=== PATIENT | female | born 1935 | race African-American/Black ===

== ENCOUNTER 2018-03-29 13:35 | Inpatient (IN) ==
[2018-03-29 14:30] LABS: BASOPHILS % (AUTO) 0.6 % (0.2-1.0); EOSINOPHILS # (AUTO) 0.1 x10^3/uL (0.0-0.2); EOSINOPHILS % (AUTO) 1.3 % (0.9-2.9); HEMATOCRIT 37.3 % (36.0-47.0); HEMOGLOBIN 11.9 g/dL (12.0-16.0); LYMPHOCYTES # (AUTO) 1.3 X10^3/uL (1.3-2.9); LYMPHOCYTES % (AUTO) 28.4 % (21.0-51.0); MEAN CORPUSCULAR HEMOGLOBIN 23.1 pg (27.0-34.0); MEAN PLATELET VOLUME 8.1 fL (7.4-11.0); MONOCYTES # (AUTO) 0.4 x10^3/uL (0.3-0.8); MONOCYTES % (AUTO) 8.5 % (0.0-13.0); NEUTROPHILS # (AUTO) 2.9 x10^3/uL (2.2-4.8); NEUTROPHILS % (AUTO) 61.2 % (42.0-75.0); PLATELET COUNT 186 X10^3/uL (150.0-450.0); RED BLOOD COUNT 5.18 X10^6/uL (3.5-5.4); RED CELL DISTRIBUTION WIDTH 15.7 % (11.6-16.5); WHITE BLOOD COUNT 4.7 X10^3/uL (3.6-10.0)
[2018-03-29 14:39] LABS: ALBUMIN 3.3 g/dL (3.4-5.0); CALCIUM 9.7 mg/dL (8.5-10.1); CARBON DIOXIDE 26.8 mmol/L (21-32); COR CA(FOR HYPOALB) 10.3 mg/dL (8.5-10.1); CREATININE 1.16 mg/dL (0.55-1.02); TOTAL PROTEIN 7.2 g/dL (6.4-8.2)
[2018-03-29 14:40] LABS: HYPOCHROMASIA 1+; PLATELET MORPHOLOGY COMMENT NORMAL (NORMAL)
[2018-03-29] MEDS: NS 1000 ML 1,000 ML IV SCH (14:42)
[2018-03-29] MEDS ORDERED: HEPARIN SODIUM INJ 5000 UNITS ONE (14:54)
[2018-03-29] MEDS ORDERED: HEPARIN SODIUM INJ 5000 UNITS IVP ONE (14:57)
[2018-03-29] MEDS: HEPARIN SODIUM IN D5W 25,000 UNITS/500 ML BAG IV PRN (15:00)
[2018-03-29 15:42] VITALS: BMI 26.6
[2018-03-29] MEDS ORDERED: NORCO 5/325 MG TAB PO PRN (15:46)
[2018-03-29] MEDS ORDERED: MILK OF MAGNESIA ONE (15:50)
[2018-03-29] MEDS: MILK OF MAGNESIA PO PRN (15:55)
[2018-03-29 16:23] LABS: BILIRUBIN,URINE NEGATIVE (NEGATIVE); BLOOD/HEMOGLOBIN,URINE 4+ (NEGATIVE); GLUCOSE, URINE NEGATIVE (NEGATIVE); KETONES,URINE NEGATIVE (NEGATIVE); LEUKOCYTE ESTERASE ,URINE 1+ (NEGATIVE); NITRITES,URINE NEGATIVE (NEGATIVE); PH,URINE 6.5 (5.0 - 8.0); PROTEIN,URINE 2+ (NEGATIVE); UROBILINOGEN,URINE 1+ (NORMAL)
[2018-03-29 16:39] LABS: APPEARANCE,URINE CLOUDY (CLEAR); COLOR,URINE YELLOW (YELLOW)
[2018-03-29 16:40] LABS: AMORPHOUS SEDIMENT,UR TRACE /HPF (NEGATIVE); BACTERIA,URINE 3+ /HPF (NEGATIVE); SQUAMOUS EPITHELIAL CELL,UR FEW /HPF (NEGATIVE)
[2018-03-29 16:41] LABS: YEAST,URINE FEW /HPF (NEGATIVE)
[2018-03-29] MEDS: HYZAAR 50/12.5 MG PO SCH (17:16)
[2018-03-29] MEDS: XANAX PO PRN (17:16)
[2018-03-29] MEDS: COUMADIN TAB 5 MG PO SCH (20:02)
[2018-03-30] MEDS: NS 1000 ML 1,000 ML IV SCH ×3 (04:31→18:31)
[2018-03-30 05:23] LABS: BASOPHILS % (AUTO) 0.5 % (0.2-1.0); EOSINOPHILS # (AUTO) 0.1 x10^3/uL (0.0-0.2); HEMATOCRIT 32.2 % (36.0-47.0); HEMOGLOBIN 10.3 g/dL (12.0-16.0); LYMPHOCYTES # (AUTO) 1.3 X10^3/uL (1.3-2.9); LYMPHOCYTES % (AUTO) 24.3 % (21.0-51.0); MEAN CORPUSCULAR HGB CONC 32.1 g/dL (33.0-35.0); MEAN CORPUSCULAR VOLUME 71.5 fL (80.0-100.0); MEAN PLATELET VOLUME 8.8 fL (7.4-11.0); MONOCYTES # (AUTO) 0.4 x10^3/uL (0.3-0.8); MONOCYTES % (AUTO) 8.5 % (0.0-13.0); NEUTROPHILS # (AUTO) 3.4 x10^3/uL (2.2-4.8); NEUTROPHILS % (AUTO) 64.7 % (42.0-75.0); PLATELET COUNT 173 X10^3/uL (150.0-450.0); RED BLOOD COUNT 4.51 X10^6/uL (3.5-5.4); RED CELL DISTRIBUTION WIDTH 15.6 % (11.6-16.5); WHITE BLOOD COUNT 5.2 X10^3/uL (3.6-10.0)
[2018-03-30 05:38] LABS: ALANINE AMINOTRANSFERASE 16 Units/L (12-78); ALBUMIN 2.6 g/dL (3.4-5.0); ALKALINE PHOSPHATASE 81 Units/L (46-116); ASPARTATE AMINO TRANSFERASE 16 Units/L (15-37); BLOOD UREA NITROGEN 18 mg/dL (7-18); CALCIUM 8.9 mg/dL (8.5-10.1); CARBON DIOXIDE 26.7 mmol/L (21-32); CHLORIDE 111 mmol/L (98-107); CREATININE 0.98 mg/dL (0.55-1.02); SODIUM 142 mmol/L (136-145); eGFR NON BLACK RACES 57 (>60)
[2018-03-30 05:56] LABS: PLATELET MORPHOLOGY COMMENT NORMAL (NORMAL)
[2018-03-30 05:57] LABS: HYPOCHROMASIA 1+; POIKILOCYTOSIS SLIGHT; TARGET CELLS SLIGHT
[2018-03-30] MEDS: HYZAAR 50/12.5 MG PO SCH (08:32)
[2018-03-30] MEDS: MILK OF MAGNESIA PO PRN (08:32)
[2018-03-30] MEDS: CIPRO IV 200 MG PREMIX* 200 MG/100 ML BAG IV SCH ×2 (10:16→20:43)
--- NOTE | 2018-03-30 11:17 | DR.UPDATE ---
H&P Update History and Physical Update: WAS SEEN IN THE OFFICE TODAY. A H&P WAS COMPLETED PRIOR TO ADMISSION. PATIENT HAS BEEN SEEN AND EXAMINED WITH NO CHANGES NOTED TO H&P. Changes noted: NO Yes with the following:
[2018-03-30] MEDS ORDERED: IMDUR PO ONE (15:23)
[2018-03-30] MEDS: ISOSORBIDE MONONITRATE ER PO SCH (15:24)
[2018-03-30] MEDS: LOPRESSOR TAB 25 MG PO SCH (15:24)
[2018-03-30] MEDS: XANAX PO PRN (15:24)
[2018-03-30] MEDS: COUMADIN TAB 5 MG PO SCH (20:43)
[2018-03-30] MEDS: HEPARIN SODIUM IN D5W 25,000 UNITS/500 ML BAG IV PRN (23:30)
[2018-03-31] MEDS: XANAX PO PRN (05:09)
[2018-03-31] MEDS: NS 1000 ML 1,000 ML IV SCH ×2 (05:09→18:26)
[2018-03-31 05:15] LABS: BASOPHILS % (AUTO) 0.2 % (0.2-1.0); EOSINOPHILS # (AUTO) 0.2 x10^3/uL (0.0-0.2); EOSINOPHILS % (AUTO) 4.4 % (0.9-2.9); HEMATOCRIT 35.1 % (36.0-47.0); HEMOGLOBIN 11.3 g/dL (12.0-16.0); LYMPHOCYTES # (AUTO) 1.6 X10^3/uL (1.3-2.9); LYMPHOCYTES % (AUTO) 39.3 % (21.0-51.0); MEAN CORPUSCULAR HEMOGLOBIN 22.9 pg (27.0-34.0); MEAN CORPUSCULAR HGB CONC 32.1 g/dL (33.0-35.0); MEAN CORPUSCULAR VOLUME 71.2 fL (80.0-100.0); MEAN PLATELET VOLUME 8.4 fL (7.4-11.0); MONOCYTES # (AUTO) 0.4 x10^3/uL (0.3-0.8); MONOCYTES % (AUTO) 10.9 % (0.0-13.0); NEUTROPHILS # (AUTO) 1.8 x10^3/uL (2.2-4.8); NEUTROPHILS % (AUTO) 45.2 % (42.0-75.0); PLATELET COUNT 180 X10^3/uL (150.0-450.0); RED BLOOD COUNT 4.92 X10^6/uL (3.5-5.4); RED CELL DISTRIBUTION WIDTH 15.2 % (11.6-16.5)
[2018-03-31 05:25] LABS: ALANINE AMINOTRANSFERASE 18 Units/L (12-78); ALBUMIN 2.6 g/dL (3.4-5.0); ALKALINE PHOSPHATASE 70 Units/L (46-116); ASPARTATE AMINO TRANSFERASE 15 Units/L (15-37); BLOOD UREA NITROGEN 13 mg/dL (7-18); CALCIUM 9.3 mg/dL (8.5-10.1); CHLORIDE 110 mmol/L (98-107); COR CA(FOR HYPOALB) 10.4 mg/dL (8.5-10.1); CREATININE 1.08 mg/dL (0.55-1.02); SODIUM 143 mmol/L (136-145); TOTAL PROTEIN 6.2 g/dL (6.4-8.2); eGFR NON BLACK RACES 51 (>60)
[2018-03-31 05:29] LABS: HYPOCHROMASIA 1+; PLATELET MORPHOLOGY COMMENT NORMAL (NORMAL)
[2018-03-31] MEDS: CIPRO IV 200 MG PREMIX* 200 MG/100 ML BAG IV SCH (08:40)
[2018-03-31] MEDS: ISOSORBIDE MONONITRATE ER PO SCH (08:40)
[2018-03-31] MEDS: HYZAAR 50/12.5 MG PO SCH (08:41)
[2018-03-31] MEDS: LOPRESSOR TAB 25 MG PO SCH (08:41)
[2018-03-31] MEDS: ALDACTONE TAB 25 MG PO SCH (10:10)
[2018-03-31] MEDS: ULTRAM PO SCH ×3 (10:10→21:36)
[2018-03-31] MEDS: SINEMET (PLAIN) 25/250 MG PO SCH ×3 (10:11→21:35)
[2018-03-31] MEDS ORDERED: HEPARIN SODIUM INJ 5000 UNITS IVP ONE (13:33)
[2018-03-31] MEDS ORDERED: HEPARIN SODIUM INJ 5000 UNITS ONE (13:33)
[2018-03-31] MEDS: ROCEPHIN 1 GRAM IV PREMIX 1 G/50 ML IV.SOLN. IV SCH (21:33)
[2018-03-31] MEDS: COUMADIN TAB 5 MG PO SCH (21:37)
[2018-04-01] MEDS: SINEMET (PLAIN) 25/250 MG PO SCH ×3 (05:13→21:15)
[2018-04-01] MEDS: ULTRAM PO SCH ×3 (05:14→21:15)
[2018-04-01] MEDS ORDERED: ZOFRAN INJ 4 MG VIAL IVP PRN (05:40)
[2018-04-01 06:33] LABS: BASOPHILS % (AUTO) 0.5 % (0.2-1.0); EOSINOPHILS # (AUTO) 0.1 x10^3/uL (0.0-0.2); EOSINOPHILS % (AUTO) 2.2 % (0.9-2.9); HEMATOCRIT 36.7 % (36.0-47.0); HEMOGLOBIN 11.8 g/dL (12.0-16.0); MEAN CORPUSCULAR HEMOGLOBIN 23.1 pg (27.0-34.0); MEAN CORPUSCULAR HGB CONC 32.1 g/dL (33.0-35.0); MEAN CORPUSCULAR VOLUME 71.9 fL (80.0-100.0); MEAN PLATELET VOLUME 8.8 fL (7.4-11.0); MONOCYTES # (AUTO) 0.7 x10^3/uL (0.3-0.8); NEUTROPHILS # (AUTO) 2.7 x10^3/uL (2.2-4.8); NEUTROPHILS % (AUTO) 49.3 % (42.0-75.0); PLATELET COUNT 166 X10^3/uL (150.0-450.0); RED CELL DISTRIBUTION WIDTH 15.3 % (11.6-16.5); WHITE BLOOD COUNT 5.5 X10^3/uL (3.6-10.0)
[2018-04-01] MEDS: NS 1000 ML 1,000 ML IV SCH ×2 (06:48→21:42)
[2018-04-01] MEDS ORDERED: HEPARIN SODIUM INJ 5000 UNITS IVP ONE (06:51)
[2018-04-01 06:54] LABS: ALANINE AMINOTRANSFERASE 6 Units/L (12-78); ALBUMIN 2.6 g/dL (3.4-5.0); ALKALINE PHOSPHATASE 69 Units/L (46-116); ASPARTATE AMINO TRANSFERASE 21 Units/L (15-37); BLOOD UREA NITROGEN 14 mg/dL (7-18); CALCIUM 9.3 mg/dL (8.5-10.1); CARBON DIOXIDE 25.5 mmol/L (21-32); CHLORIDE 104 mmol/L (98-107); COR CA(FOR HYPOALB) 10.4 mg/dL (8.5-10.1); CREATININE 0.99 mg/dL (0.55-1.02); SODIUM 137 mmol/L (136-145); TOTAL PROTEIN 6.7 g/dL (6.4-8.2); eGFR NON BLACK RACES 57 (>60)
[2018-04-01 07:03] LABS: ANISOCYTOSIS SLIGHT; HYPOCHROMASIA 1+; PLATELET MORPHOLOGY COMMENT NORMAL (NORMAL)
[2018-04-01] MEDS ORDERED: PHENERGAN INJ 25 MG IV PRN (07:09)
[2018-04-01] MEDS: HYZAAR 50/12.5 MG PO SCH (08:58)
[2018-04-01] MEDS: ALDACTONE TAB 25 MG PO SCH (08:58)
[2018-04-01] MEDS: ROCEPHIN 1 GRAM IV PREMIX 1 G/50 ML IV.SOLN. IV SCH (08:59)
[2018-04-01] MEDS: LOPRESSOR TAB 25 MG PO SCH (08:59)
[2018-04-01] MEDS: ISOSORBIDE MONONITRATE ER PO SCH (08:59)
--- NOTE | 2018-04-01 10:52 | PCM.PROG ---
Progress Note - Progress Note for Day of Date: 03/30/18 - Subjective Subjective: WAS ADMITTED FOR A LEFT LOWER EXTREMITY DVT. TODAY, SHE IS ALERT AND ORIENTED, SITTING UP ON THE SIDE OF THE BED ON MORNING ROUNDS. SHE IS FEEDING HERSELFT BREAKFAST WITH THE ASSISTANCE OF STAFF. ON EXAMINATION, HEART IS REGULAR IN RATE AND RHYTHM. BILATERAL LUNGS ARE NOTED WITH DIMINISHED LUNG SOUNDS THROUGHOUT. ABDOMEN IS ROUND, SOFT, AND NON-TENDER WITH NORMAL BOWEL SOUNDS NOTED IN ALL QUADRANTS. LEFT LOWER EXTREMITY IS NOTED WITH WARMTH AND EDEMA. HER VITALS TODAY ARE 97.6-66-20-100%-174/80. LABS WERE OBTAINED. ABNORMAL LAB VALUES INCLUDE THE FOLLOWING: HGB 10.3, HCT 32.2, CHLORIDE 111, TOTAL PROTEIN 6.0, ALBUMIN 2.6. URINALYSIS THAT WAS OBTAINED ON ADMISSION REVEALED WBC 3-5, RBC 3-5, LEUKOCYTES 1+, BACTERIA 3+. A URINE CULTURE IS PENDING. SHE CONTINUES ON A HEPARIN DRIP THIS MORNING AND IS ALSO RECEIVING COUMADIN 5MG AT BEDTIME. WE WILL CONTINUE WITH CURRENT PLAN OF CARE TODAY AND START CIPRO 200MG IV Q12H FOR UTI. OTHERWISE, WE WILL FOLLOW UP WITH AM LABS AND CONTINUE TO MONITOR PATIENT. - Past Medical Family Social History Past Med/Fam/Surg Hx: No changes since H&P Allergies: Allergies codeine Allergy (Verified 03/29/18 14:17) penicillin G Allergy (Verified 03/29/18 14:17) - Review of Systems ROS: No change since H&P - Vital Signs and I&O's Vital Signs: Temperature 98.7 F Pulse Rate [Apical] 69 Respiratory Rate 15 Blood Pressure [Left Arm] 178/98 O2 Sat by Pulse Oximetry 100 Intake and Output: Intake & Output 03/29/18 03/30/18 03/31/18 04/01/18 11:59 11:59 11:59 11:59 Intake Total 2116 / 2116 2829 / 2829 2108 / 2108 Output Total 2249 / 2250 3075 / 3075 2049 Balance -134 / -134 -246 / -246 - Physical Exam Oriented: Normal Eyes: Normal Ear: Normal Nose: Normal Throat: Normal Respiratory: Normal Cardiovascular: Normal : Normal Auscultation: Bowel Sounds: Normal Palpation: Normal Tenderness: Normal Skin: Tender (LEFT LOWER EXTREMITY ), Hot Musculoskeletal: Left, Leg, Swelling, Tender Psychiatric: Normal Mood Description: Calm Affect: Normal Speech Pattern: Clear, Appropriate - Laboratory and Diagnostics Result Diagrams: 04/01/18 05:40 04/01/18 05:40 Labs: 03/29/18 15:22 Urine,Catheterized Urine Culture - Final Escherichia Coli Laboratory WBC 5.5 X10^3/uL (3.6-10.0) 04/01/18 05:40 RBC 5.10 X10^6/uL (3.5-5.4) 04/01/18 05:40 Hgb 11.8 g/dL (12.0-16.0) L 04/01/18 05:40 Hct 36.7 % (36.0-47.0) 04/01/18 05:40 MCV 71.9 fL (80.0-100.0) L 04/01/18 05:40 MCH 23.1 pg (27.0-34.0) L 04/01/18 05:40 MCHC 32.1 g/dL (33.0-35.0) L 04/01/18 05:40 RDW 15.3 % (11.6-16.5) 04/01/18 05:40 Plt Count 166 X10^3/uL (150.0-450.0) 04/01/18 05:40 Plt Count Comment Adequate (ADEQUATE) 04/01/18 05:40 MPV 8.8 fL (7.4-11.0) 04/01/18 05:40 Neut % (Auto) 49.3 % (42.0-75.0) 04/01/18 05:40 Lymph % (Auto) 36.0 % (21.0-51.0) 04/01/18 05:40 [place] % (Auto) 12.0 % (0.0-13.0) 04/01/18 05:40 Eos % (Auto) 2.2 % (0.9-2.9) 04/01/18 05:40 Baso % (Auto) 0.5 % (0.2-1.0) 04/01/18 05:40 Neut # (Auto) 2.7 x10^3/uL (2.2-4.8) 04/01/18 05:40 Lymph # (Auto) 2.0 X10^3/uL (1.3-2.9) 04/01/18 05:40 [place] # (Auto) 0.7 x10^3/uL (0.3-0.8) 04/01/18 05:40 Eos # (Auto) 0.1 x10^3/uL (0.0-0.2) 04/01/18 05:40 Baso # (Auto) 0.0 X10^3/uL (0.0-0.1) 04/01/18 05:40 Absolute Nucleated RBC 0.1 /100WBC 04/01/18 05:40 Plt Morphology Comment Normal (NORMAL) 04/01/18 05:40 RBC Morphology Abnormal (NORMAL) A 04/01/18 05:40 Hypochromasia 1+ A 04/01/18 05:40 Poikilocytosis Slight A 03/30/18 04:08 Anisocytosis Slight A 04/01/18 05:40 Target Cells Slight A 03/30/18 04:08 Acanthocytes (Spur) Slight 03/30/18 04:08 INR Target Range - 04/01/18 05:40 INR 2.10 (0.8-1.3) H 04/01/18 05:40 APTT 50.6 SECONDS (22.9-36.5) H 04/01/18 05:40 PTT Comment - 04/01/18 05:40 Sodium 137 mmol/L (136-145) 04/01/18 05:40 Corrected Sodium TNP 04/01/18 05:40 Potassium 4.4 mmol/L (3.5-5.1) 04/01/18 05:40 Chloride 104 mmol/L (98-107) 04/01/18 05:40 Carbon Dioxide 25.5 mmol/L (21-32) 04/01/18 05:40 BUN 14 mg/dL (7-18) 04/01/18 05:40 Creatinine 0.99 mg/dL (0.55-1.02) 04/01/18 05:40 Est GFR (MDRD) Af Amer > 60 (>60) 04/01/18 05:40 Est GFR (MDRD) Non-Af 57 (>60) L 04/01/18 05:40 Glucose 107 mg/dL (65-99) H 04/01/18 05:40 Calcium 9.3 mg/dL (8.5-10.1) 04/01/18 05:40 Corrected Calcium 10.4 mg/dL (8.5-10.1) H 04/01/18 05:40 Total Bilirubin 0.40 mg/dL (0.2-1.0) 04/01/18 05:40 AST 21 Units/L (15-37) 04/01/18 05:40 ALT 6 Units/L (12-78) L 04/01/18 05:40 Alkaline Phosphatase 69 Units/L (46-116) 04/01/18 05:40 Total Protein 6.7 g/dL (6.4-8.2) 04/01/18 05:40 Albumin 2.6 g/dL (3.4-5.0) L 04/01/18 05:40 Globulin 4.1 g/dL (2.5-4.5) 04/01/18 05:40 Albumin/Globulin Ratio 0.6 Ratio (1.1-2.1) L 04/01/18 05:40 Specimen Type Catherized urine 03/29/18 15:22 Urine Color Yellow (YELLOW) 03/29/18 15:22 Urine Appearance Cloudy (CLEAR) 03/29/18 15:22 Urine pH 6.5 (5.0 - 8.0) 03/29/18 15:22 Ur Specific [place] 1.015 (1.000-1.030) 03/29/18 15:22 Urine Protein 2+ (NEGATIVE) 03/29/18 15:22 Urine Glucose (UA) Negative (NEGATIVE) 03/29/18 15:22 Urine Ketones Negative (NEGATIVE) 03/29/18 15:22 Urine Occult Blood 4+ (NEGATIVE) 03/29/18 15:22 Urine Nitrite Negative (NEGATIVE) 03/29/18 15:22 Urine Bilirubin Negative (NEGATIVE) 03/29/18 15:22 Urine Urobilinogen 1+ (NORMAL) 03/29/18 15:22 Ur Leukocyte Esterase 1+ (NEGATIVE) 03/29/18 15:22 Urine RBC 3-5 /HPF (NONE SEEN) 03/29/18 15:22 Urine WBC 3-5 /HPF (NONE SEEN) 03/29/18 15:22 Ur Squamous Epith Cells Few /HPF (NEGATIVE) 03/29/18 15:22 Amorphous Sediment Trace /HPF (NEGATIVE) 03/29/18 15:22 Urine Bacteria 3+ /HPF (NEGATIVE) 03/29/18 15:22 Urine Yeast Few /HPF (NEGATIVE) 03/29/18 15:22 Ur Culture Indicated? Yes/culture set up 03/29/18 15:22 - Plan (1) DVT (deep venous thrombosis) Status: Acute Qualifiers: DVT location: lower extremity Affected thrombotic vein of extremity: unspecified vein of extremity Chronicity: acute Laterality: left Qualified Code(s): I82.402 - Acute embolism and thrombosis of unspecified deep veins of left lower extremity Plan: HEPARIN DRIP, COUMADIN 5MG HS, CONTINUE TO MONITOR (2) UTI (urinary tract infection) Status: Acute Qualifiers: Urinary tract infection type: acute cystitis Hematuria presence: without hematuria Qualified Code(s): N30.00 - Acute cystitis without hematuria Plan: CIPRO 200MG IV BID, CONTINUE TO MONITOR
--- NOTE | 2018-04-01 10:58 | PCM.PROG ---
Progress Note - Progress Note for Day of Date: 03/31/18 - Subjective Subjective: WAS ADMITTED FOR A LEFT LOWER EXTREMITY DVT. TODAY, SHE IS LYING IN BED WITH EYES CLOSED ON MORNING ROUNDS. SHE IS DISORIENTED UPON AWAKENING. PATIENT DOES HAVE A HISTORY SIGNIFICANT FOR DEMENTIA. ON EXAMINATION , HEART IS REGULAR IN RATE AND RHYTHM. BILATERAL LUNGS ARE NOTED WITH DIMINISHED LUNG SOUNDS THROUGHOUT. ABDOMEN IS ROUND, SOFT, AND NON-TENDER WITH NORMAL BOWEL SOUNDS NOTED IN ALL QUADRANTS. LEFT LOWER EXTREMITY CONTINUES WITH WARMTH AND EDEMA. HER VITALS TODAY ARE 97.5-63-18-99%-196/85. LABS WERE OBTAINED. ABNORMAL LAB VALUES INCLUDE THE FOLLOWING: HGB 11.3, HCT 35.1, CHLORIDE 110, CREATININE 1.08, TOTAL PROTEIN 6.2, ALBUMIN 2.6, INR 1.89. URINE CUTURE REVEALED GROWHT OF E.COLI. IT IS NOT SENSITIVE TO THE CIPRO THAT SHE IS ON. WE WILL DISCONTINUE THE CIPRO AND START ROCEPHIN 1GM IV DAILY. SHE CONTINUES ON A HEPARIN DRIP THIS MORNING AND IS ALSO RECEIVING COUMADIN 5MG AT BEDTIME. WE WILL FOLLOW UP WITH AM LABS AND CONTINUE TO MONITOR PATIENT. - Past Medical Family Social History Past Med/Fam/Surg Hx: No changes since H&P Allergies: Allergies codeine Allergy (Verified 03/29/18 14:17) penicillin G Allergy (Verified 03/29/18 14:17) - Review of Systems ROS: No change since H&P - Vital Signs and I&O's Vital Signs: Temperature 98.7 F Pulse Rate [Apical] 69 Respiratory Rate 15 Blood Pressure [Left Arm] 178/98 O2 Sat by Pulse Oximetry 100 Intake and Output: Intake & Output 03/29/18 03/30/18 03/31/18 04/01/18 11:59 11:59 11:59 11:59 Intake Total 2116 / 2116 2829 / 2829 2108 / 2108 Output Total 2250 / 2250 3075 / 3075 2049 Balance -134 / -134 -246 / -246 - Physical Exam Oriented: Normal Eyes: Normal Ear: Normal Nose: Normal Throat: Normal Respiratory: Normal Cardiovascular: Normal : Normal Auscultation: Bowel Sounds: Normal Palpation: Normal Tenderness: Normal Skin: Tender (LEFT LOWER EXTREMITY ), Hot Musculoskeletal: Left, Leg, Swelling, Tender Psychiatric: Normal Mood Description: Calm Affect: Normal Speech Pattern: Clear, Appropriate - Laboratory and Diagnostics Result Diagrams: 04/01/18 05:40 04/01/18 05:40 Labs: 03/29/18 15:22 Urine,Catheterized Urine Culture - Final Escherichia Coli Laboratory WBC 5.5 X10^3/uL (3.6-10.0) 04/01/18 05:40 RBC 5.10 X10^6/uL (3.5-5.4) 04/01/18 05:40 Hgb 11.8 g/dL (12.0-16.0) L 04/01/18 05:40 Hct 36.7 % (36.0-47.0) 04/01/18 05:40 MCV 71.9 fL (80.0-100.0) L 04/01/18 05:40 MCH 23.1 pg (27.0-34.0) L 04/01/18 05:40 MCHC 32.1 g/dL (33.0-35.0) L 04/01/18 05:40 RDW 15.3 % (11.6-16.5) 04/01/18 05:40 Plt Count 166 X10^3/uL (150.0-450.0) 04/01/18 05:40 Plt Count Comment Adequate (ADEQUATE) 04/01/18 05:40 MPV 8.8 fL (7.4-11.0) 04/01/18 05:40 Neut % (Auto) 49.3 % (42.0-75.0) 04/01/18 05:40 Lymph % (Auto) 36.0 % (21.0-51.0) 04/01/18 05:40 [place] % (Auto) 12.0 % (0.0-13.0) 04/01/18 05:40 Eos % (Auto) 2.2 % (0.9-2.9) 04/01/18 05:40 Baso % (Auto) 0.5 % (0.2-1.0) 04/01/18 05:40 Neut # (Auto) 2.7 x10^3/uL (2.2-4.8) 04/01/18 05:40 Lymph # (Auto) 2.0 X10^3/uL (1.3-2.9) 04/01/18 05:40 [place] # (Auto) 0.7 x10^3/uL (0.3-0.8) 04/01/18 05:40 Eos # (Auto) 0.1 x10^3/uL (0.0-0.2) 04/01/18 05:40 Baso # (Auto) 0.0 X10^3/uL (0.0-0.1) 04/01/18 05:40 Absolute Nucleated RBC 0.1 /100WBC 04/01/18 05:40 Plt Morphology Comment Normal (NORMAL) 04/01/18 05:40 RBC Morphology Abnormal (NORMAL) A 04/01/18 05:40 Hypochromasia 1+ A 04/01/18 05:40 Poikilocytosis Slight A 03/30/18 04:08 Anisocytosis Slight A 04/01/18 05:40 Target Cells Slight A 03/30/18 04:08 Acanthocytes (Spur) Slight 03/30/18 04:08 INR Target Range - 04/01/18 05:40 INR 2.10 (0.8-1.3) H 04/01/18 05:40 APTT 50.6 SECONDS (22.9-36.5) H 04/01/18 05:40 PTT Comment - 04/01/18 05:40 Sodium 137 mmol/L (136-145) 04/01/18 05:40 Corrected Sodium TNP 04/01/18 05:40 Potassium 4.4 mmol/L (3.5-5.1) 04/01/18 05:40 Chloride 104 mmol/L (98-107) 04/01/18 05:40 Carbon Dioxide 25.5 mmol/L (21-32) 04/01/18 05:40 BUN 14 mg/dL (7-18) 04/01/18 05:40 Creatinine 0.99 mg/dL (0.55-1.02) 04/01/18 05:40 Est GFR (MDRD) Af Amer > 60 (>60) 04/01/18 05:40 Est GFR (MDRD) Non-Af 57 (>60) L 04/01/18 05:40 Glucose 107 mg/dL (65-99) H 04/01/18 05:40 Calcium 9.3 mg/dL (8.5-10.1) 04/01/18 05:40 Corrected Calcium 10.4 mg/dL (8.5-10.1) H 04/01/18 05:40 Total Bilirubin 0.40 mg/dL (0.2-1.0) 04/01/18 05:40 AST 21 Units/L (15-37) 04/01/18 05:40 ALT 6 Units/L (12-78) L 04/01/18 05:40 Alkaline Phosphatase 69 Units/L (46-116) 04/01/18 05:40 Total Protein 6.7 g/dL (6.4-8.2) 04/01/18 05:40 Albumin 2.6 g/dL (3.4-5.0) L 04/01/18 05:40 Globulin 4.1 g/dL (2.5-4.5) 04/01/18 05:40 Albumin/Globulin Ratio 0.6 Ratio (1.1-2.1) L 04/01/18 05:40 Specimen Type Catherized urine 03/29/18 15:22 Urine Color Yellow (YELLOW) 03/29/18 15:22 Urine Appearance Cloudy (CLEAR) 03/29/18 15:22 Urine pH 6.5 (5.0 - 8.0) 03/29/18 15:22 Ur Specific [place] 1.015 (1.000-1.030) 03/29/18 15:22 Urine Protein 2+ (NEGATIVE) 03/29/18 15:22 Urine Glucose (UA) Negative (NEGATIVE) 03/29/18 15:22 Urine Ketones Negative (NEGATIVE) 03/29/18 15:22 Urine Occult Blood 4+ (NEGATIVE) 03/29/18 15:22 Urine Nitrite Negative (NEGATIVE) 03/29/18 15:22 Urine Bilirubin Negative (NEGATIVE) 03/29/18 15:22 Urine Urobilinogen 1+ (NORMAL) 03/29/18 15:22 Ur Leukocyte Esterase 1+ (NEGATIVE) 03/29/18 15:22 Urine RBC 3-5 /HPF (NONE SEEN) 03/29/18 15:22 Urine WBC 3-5 /HPF (NONE SEEN) 03/29/18 15:22 Ur Squamous Epith Cells Few /HPF (NEGATIVE) 03/29/18 15:22 Amorphous Sediment Trace /HPF (NEGATIVE) 03/29/18 15:22 Urine Bacteria 3+ /HPF (NEGATIVE) 03/29/18 15:22 Urine Yeast Few /HPF (NEGATIVE) 03/29/18 15:22 Ur Culture Indicated? Yes/culture set up 03/29/18 15:22 - Plan (1) DVT (deep venous thrombosis) Status: Acute Qualifiers: DVT location: lower extremity Affected thrombotic vein of extremity: unspecified vein of extremity Chronicity: acute Laterality: left Qualified Code(s): I82.402 - Acute embolism and thrombosis of unspecified deep veins of left lower extremity Plan: HEPARIN DRIP, COUMADIN 5MG HS, CONTINUE TO MONITOR (2) UTI (urinary tract infection) Status: Acute Qualifiers: Urinary tract infection type: acute cystitis Hematuria presence: without hematuria Qualified Code(s): N30.00 - Acute cystitis without hematuria Plan: CIPRO 200MG IV BID, CONTINUE TO MONITOR (3) Dementia Status: Acute Qualifiers: Dementia type: vascular dementia Dementia behavioral disturbance: without behavioral disturbance Qualified Code(s): F01.50 - Vascular dementia without behavioral disturbance (4) Hypertension Status: Acute Qualifiers: Hypertension type: essential hypertension Qualified Code(s): I10 - Essential (primary) hypertension Plan: RESUME HOME MEDICATIONS
--- NOTE | 2018-04-01 14:21 | CT ---
CT head without contrast Indication: Altered mental status Comparison: MRI 07/14/2016 Technique: CT images of the head were obtained without contrast. Automatic exposure control was utili Calerad. Findings: There is moderate generalized brain atrophy with control and periventricular and patchy maury p white matter hypoattenuation, most compatible with severe microangiopathy. There is no acute bleed, mass effect, or abnormal extra-axial collection. No significant skeletal abnormality. The visualized paranasal sinuses and mastoid air cells are grossly clear. Impression: No acute intracranial abnormality. Global atrophy, marked white matter microangiopathy. Reported By:
[2018-04-01] MEDS: COUMADIN TAB 5 MG PO SCH (20:40)
[2018-04-01] MEDS: HEPARIN SODIUM IN D5W 25,000 UNITS/500 ML BAG IV PRN (22:21)
[2018-04-02 03:39] LABS: BASOPHILS % (AUTO) 0.4 % (0.2-1.0); EOSINOPHILS % (AUTO) 0.5 % (0.9-2.9); HEMOGLOBIN 11.8 g/dL (12.0-16.0); LYMPHOCYTES # (AUTO) 1.2 X10^3/uL (1.3-2.9); LYMPHOCYTES % (AUTO) 18.6 % (21.0-51.0); MEAN CORPUSCULAR HEMOGLOBIN 22.9 pg (27.0-34.0); MEAN CORPUSCULAR VOLUME 71.6 fL (80.0-100.0); MEAN PLATELET VOLUME 8.7 fL (7.4-11.0); MONOCYTES # (AUTO) 0.7 x10^3/uL (0.3-0.8); NEUTROPHILS # (AUTO) 4.5 x10^3/uL (2.2-4.8); NEUTROPHILS % (AUTO) 69.5 % (42.0-75.0); PLATELET COUNT 197 X10^3/uL (150.0-450.0); RED BLOOD COUNT 5.17 X10^6/uL (3.5-5.4); RED CELL DISTRIBUTION WIDTH 15.7 % (11.6-16.5); WHITE BLOOD COUNT 6.5 X10^3/uL (3.6-10.0)
[2018-04-02 03:50] LABS: ALANINE AMINOTRANSFERASE 8 Units/L (12-78); ALBUMIN 2.7 g/dL (3.4-5.0); ALKALINE PHOSPHATASE 65 Units/L (46-116); ASPARTATE AMINO TRANSFERASE 16 Units/L (15-37); BLOOD UREA NITROGEN 17 mg/dL (7-18); CALCIUM 9.7 mg/dL (8.5-10.1); CARBON DIOXIDE 27.6 mmol/L (21-32); CHLORIDE 102 mmol/L (98-107); COR CA(FOR HYPOALB) 10.7 mg/dL (8.5-10.1); CREATININE 1.24 mg/dL (0.55-1.02); SODIUM 136 mmol/L (136-145); TOTAL PROTEIN 7.1 g/dL (6.4-8.2); eGFR NON BLACK RACES 44 (>60)
[2018-04-02 03:52] LABS: ANISOCYTOSIS SLIGHT; HYPOCHROMASIA 1+; PLATELET MORPHOLOGY COMMENT NORMAL (NORMAL)
[2018-04-02] MEDS: ULTRAM PO SCH ×3 (07:15→21:06)
[2018-04-02] MEDS: SINEMET (PLAIN) 25/250 MG PO SCH ×3 (07:15→21:06)
[2018-04-02] MEDS: ALDACTONE TAB 25 MG PO SCH (09:19)
[2018-04-02] MEDS: ROCEPHIN 1 GRAM IV PREMIX 1 G/50 ML IV.SOLN. IV SCH (09:19)
[2018-04-02] MEDS: NS 1000 ML 1,000 ML IV SCH ×2 (09:20→18:11)
[2018-04-02] MEDS: ISOSORBIDE MONONITRATE ER PO SCH (09:20)
[2018-04-02] MEDS: HYZAAR 50/12.5 MG PO SCH (09:20)
[2018-04-02] MEDS: LOPRESSOR TAB 25 MG PO SCH (09:20)
[2018-04-02] MEDS: COZAAR PO SCH (10:18)
--- NOTE | 2018-04-02 14:53 | PCM.PROG ---
Progress Note - Progress Note for Day of Date: 04/01/18 - Subjective Subjective: WAS ADMITTED FOR A LEFT LOWER EXTREMITY DVT. TODAY, SHE IS LYING IN BED WITH EYES CLOSED ON MORNING ROUNDS. SHE AWAKENS TO VERBAL STIMULI. SHE IS NOTED TO BE DISORIENTED THIS MORNING. STAFF REPORTS THAT SHE HAS BEEN NOTED WITH INCREASED CONFUSION. ON EXAMINATION, HEART IS REGULAR IN RATE AND RHYTHM. BILATERAL LUNGS ARE NOTED WITH DIMINISHED LUNG SOUNDS THROUGHOUT. ABDOMEN IS ROUND, SOFT, AND NON-TENDER WITH NORMAL BOWEL SOUNDS NOTED IN ALL QUADRANTS. LEFT LOWER EXTREMITY CONTINUES WITH WARMTH AND EDEMA, BUT CONTINUES TO IMPROVE. HER VITALS TODAY ARE 98.7-63-16-97%-194/81. LABS WERE OBTAINED. ABNORMAL LAB VALUES INCLUDE THE FOLLOWING: HGB 11.8, GLUCOSE 107, ALT 6, ALBUMIN 2.6. SHE CONTINUES ON ANTIBIOTICS FOR GROWTH OF E.COLI IN URINE. SHE ALSO CONTINUES ON A HEPARIN DRIP THIS MORNING AND IS ALSO RECEIVING COUMADIN 5MG AT BEDTIME. TODAY, WE WILL OBTAIN A BRAIN CT. OTHERWISE, WE WILL FOLLOW UP WITH AM LABS AND CONTINUE TO MONITOR PATIENT. - Past Medical Family Social History Past Med/Fam/Surg Hx: No changes since H&P Allergies: Allergies codeine Allergy (Verified 03/29/18 14:17) penicillin G Allergy (Verified 03/29/18 14:17) - Review of Systems ROS: No change since H&P - Vital Signs and I&O's Vital Signs: Temperature 98.9 F Pulse Rate [Apical] 64 Respiratory Rate 9 Blood Pressure [Left Arm] 147/70 O2 Sat by Pulse Oximetry 100 Intake and Output: Intake & Output 03/31/18 04/01/18 04/02/18 04/03/18 11:59 11:59 11:59 11:59 Intake Total 2829 / 2829 2109 / 2109 2719 / 2719 Output Total 3075 / 3075 2049 / 2049 2099 / 2099 Balance -246 / -246 59 / 59 619 / 619 - Physical Exam Oriented: Not Oriented Eyes: Normal Ear: Normal Nose: Normal Throat: Normal Respiratory: Normal Cardiovascular: Normal : Normal Auscultation: Bowel Sounds: Normal Palpation: Normal Tenderness: Normal Skin: Tender (LEFT LOWER EXTREMITY ), Hot Musculoskeletal: Left, Leg, Swelling, Tender Psychiatric: Normal Mood Description: Calm Affect: Normal Speech Pattern: Clear, Appropriate - Laboratory and Diagnostics Result Diagrams: 04/02/18 03:20 04/02/18 03:20 Labs: 03/29/18 15:22 Urine,Catheterized Urine Culture - Final Escherichia Coli Laboratory WBC 6.5 X10^3/uL (3.6-10.0) 04/02/18 03:20 RBC 5.17 X10^6/uL (3.5-5.4) 04/02/18 03:20 Hgb 11.8 g/dL (12.0-16.0) L 04/02/18 03:20 Hct 37.0 % (36.0-47.0) 04/02/18 03:20 MCV 71.6 fL (80.0-100.0) L 04/02/18 03:20 MCH 22.9 pg (27.0-34.0) L 04/02/18 03:20 MCHC 32.0 g/dL (33.0-35.0) L 04/02/18 03:20 RDW 15.7 % (11.6-16.5) 04/02/18 03:20 Plt Count 197 X10^3/uL (150.0-450.0) 04/02/18 03:20 Plt Count Comment Adequate (ADEQUATE) 04/02/18 03:20 MPV 8.7 fL (7.4-11.0) 04/02/18 03:20 Neut % (Auto) 69.5 % (42.0-75.0) 04/02/18 03:20 Lymph % (Auto) 18.6 % (21.0-51.0) L 04/02/18 03:20 [place] % (Auto) 11.0 % (0.0-13.0) 04/02/18 03:20 Eos % (Auto) 0.5 % (0.9-2.9) L 04/02/18 03:20 Baso % (Auto) 0.4 % (0.2-1.0) 04/02/18 03:20 Neut # (Auto) 4.5 x10^3/uL (2.2-4.8) 04/02/18 03:20 Lymph # (Auto) 1.2 X10^3/uL (1.3-2.9) L 04/02/18 03:20 [place] # (Auto) 0.7 x10^3/uL (0.3-0.8) 04/02/18 03:20 Eos # (Auto) 0.0 x10^3/uL (0.0-0.2) 04/02/18 03:20 Baso # (Auto) 0.0 X10^3/uL (0.0-0.1) 04/02/18 03:20 Absolute Nucleated RBC 0.0 /100WBC 04/02/18 03:20 Plt Morphology Comment Normal (NORMAL) 04/02/18 03:20 RBC Morphology Abnormal (NORMAL) A 04/02/18 03:20 Hypochromasia 1+ A 04/02/18 03:20 Poikilocytosis Slight A 03/30/18 04:08 Anisocytosis Slight A 04/02/18 03:20 Target Cells Slight A 03/30/18 04:08 Acanthocytes (Spur) Slight 03/30/18 04:08 INR Target Range - 04/02/18 03:20 INR 2.73 (0.8-1.3) H 04/02/18 03:20 APTT 87.0 SECONDS (22.9-36.5) H 04/02/18 09:10 PTT Comment - 04/02/18 09:10 Sodium 136 mmol/L (136-145) 04/02/18 03:20 Corrected Sodium TNP 04/02/18 03:20 Potassium 4.3 mmol/L (3.5-5.1) 04/02/18 03:20 Chloride 102 mmol/L (98-107) 04/02/18 03:20 Carbon Dioxide 27.6 mmol/L (21-32) 04/02/18 03:20 BUN 17 mg/dL (7-18) 04/02/18 03:20 Creatinine 1.24 mg/dL (0.55-1.02) H 04/02/18 03:20 Est GFR (MDRD) Af Amer 53 (>60) L 04/02/18 03:20 Est GFR (MDRD) Non-Af 44 (>60) L 04/02/18 03:20 Glucose 102 mg/dL (65-99) H 04/02/18 03:20 Calcium 9.7 mg/dL (8.5-10.1) 04/02/18 03:20 Corrected Calcium 10.7 mg/dL (8.5-10.1) H 04/02/18 03:20 Total Bilirubin 0.30 mg/dL (0.2-1.0) 04/02/18 03:20 AST 16 Units/L (15-37) 04/02/18 03:20 ALT 8 Units/L (12-78) L 04/02/18 03:20 Alkaline Phosphatase 65 Units/L (46-116) 04/02/18 03:20 Total Protein 7.1 g/dL (6.4-8.2) 04/02/18 03:20 Albumin 2.7 g/dL (3.4-5.0) L 04/02/18 03:20 Globulin 4.4 g/dL (2.5-4.5) 04/02/18 03:20 Albumin/Globulin Ratio 0.6 Ratio (1.1-2.1) L 04/02/18 03:20 Specimen Type Catherized urine 03/29/18 15:22 Urine Color Yellow (YELLOW) 03/29/18 15:22 Urine Appearance Cloudy (CLEAR) 03/29/18 15:22 Urine pH 6.5 (5.0 - 8.0) 03/29/18 15:22 Ur Specific [place] 1.015 (1.000-1.030) 03/29/18 15:22 Urine Protein 2+ (NEGATIVE) 03/29/18 15:22 Urine Glucose (UA) Negative (NEGATIVE) 03/29/18 15:22 Urine Ketones Negative (NEGATIVE) 03/29/18 15:22 Urine Occult Blood 4+ (NEGATIVE) 03/29/18 15:22 Urine Nitrite Negative (NEGATIVE) 03/29/18 15:22 Urine Bilirubin Negative (NEGATIVE) 03/29/18 15:22 Urine Urobilinogen 1+ (NORMAL) 03/29/18 15:22 Ur Leukocyte Esterase 1+ (NEGATIVE) 03/29/18 15:22 Urine RBC 3-5 /HPF (NONE SEEN) 03/29/18 15:22 Urine WBC 3-5 /HPF (NONE SEEN) 03/29/18 15:22 Ur Squamous Epith Cells Few /HPF (NEGATIVE) 03/29/18 15:22 Amorphous Sediment Trace /HPF (NEGATIVE) 03/29/18 15:22 Urine Bacteria 3+ /HPF (NEGATIVE) 03/29/18 15:22 Urine Yeast Few /HPF (NEGATIVE) 03/29/18 15:22 Ur Culture Indicated? Yes/culture set up 03/29/18 15:22 - Plan (1) DVT (deep venous thrombosis) Status: Acute Qualifiers: DVT location: lower extremity Affected thrombotic vein of extremity: unspecified vein of extremity Chronicity: acute Laterality: left Qualified Code(s): I82.402 - Acute embolism and thrombosis of unspecified deep veins of left lower extremity Plan: HEPARIN DRIP, COUMADIN 5MG HS, CONTINUE TO MONITOR (2) UTI (urinary tract infection) Status: Acute Qualifiers: Urinary tract infection type: acute cystitis Hematuria presence: without hematuria Qualified Code(s): N30.00 - Acute cystitis without hematuria Plan: CIPRO 200MG IV BID, CONTINUE TO MONITOR (3) Dementia Status: Acute Qualifiers: Dementia type: vascular dementia Dementia behavioral disturbance: without behavioral disturbance Qualified Code(s): F01.50 - Vascular dementia without behavioral disturbance Plan: OBTAIN BRAIN CT TODAY DUE TO INCREASED CONFUSION AND WEAKNESS (4) Hypertension Status: Acute Qualifiers: Hypertension type: essential hypertension Qualified Code(s): I10 - Essential (primary) hypertension Plan: RESUME HOME MEDICATIONS
[2018-04-02] MEDS: COUMADIN TAB 5 MG PO SCH (20:09)
[2018-04-03] MEDS: NS 1000 ML 1,000 ML IV SCH ×2 (00:45→13:17)
[2018-04-03 04:28] LABS: BASOPHILS % (AUTO) 0.6 % (0.2-1.0); EOSINOPHILS # (AUTO) 0.1 x10^3/uL (0.0-0.2); EOSINOPHILS % (AUTO) 0.9 % (0.9-2.9); HEMATOCRIT 37.7 % (36.0-47.0); HEMOGLOBIN 12.1 g/dL (12.0-16.0); LYMPHOCYTES % (AUTO) 16.8 % (21.0-51.0); MEAN CORPUSCULAR HEMOGLOBIN 22.8 pg (27.0-34.0); MEAN CORPUSCULAR VOLUME 71.1 fL (80.0-100.0); MEAN PLATELET VOLUME 8.7 fL (7.4-11.0); MONOCYTES # (AUTO) 0.8 x10^3/uL (0.3-0.8); MONOCYTES % (AUTO) 13.5 % (0.0-13.0); NEUTROPHILS # (AUTO) 4.1 x10^3/uL (2.2-4.8); NEUTROPHILS % (AUTO) 68.2 % (42.0-75.0); PLATELET COUNT 193 X10^3/uL (150.0-450.0); RED CELL DISTRIBUTION WIDTH 15.1 % (11.6-16.5)
[2018-04-03 04:38] LABS: ANISOCYTOSIS SLIGHT; HYPOCHROMASIA 1+; PLATELET MORPHOLOGY COMMENT NORMAL (NORMAL)
[2018-04-03 04:41] LABS: ALANINE AMINOTRANSFERASE 10 Units/L (12-78); ALBUMIN 2.5 g/dL (3.4-5.0); ALKALINE PHOSPHATASE 59 Units/L (46-116); ASPARTATE AMINO TRANSFERASE 18 Units/L (15-37); BLOOD UREA NITROGEN 17 mg/dL (7-18); CALCIUM 9.8 mg/dL (8.5-10.1); CARBON DIOXIDE 27.1 mmol/L (21-32); CHLORIDE 101 mmol/L (98-107); SODIUM 135 mmol/L (136-145); TOTAL PROTEIN 6.9 g/dL (6.4-8.2); eGFR NON BLACK RACES 56 (>60)
[2018-04-03] MEDS: SINEMET (PLAIN) 25/250 MG PO SCH ×3 (05:31→21:32)
[2018-04-03] MEDS: ULTRAM PO SCH ×3 (05:32→21:31)
[2018-04-03] MEDS: ROCEPHIN 1 GRAM IV PREMIX 1 G/50 ML IV.SOLN. IV SCH (08:22)
[2018-04-03] MEDS: ALDACTONE TAB 25 MG PO SCH (08:23)
[2018-04-03] MEDS: ISOSORBIDE MONONITRATE ER PO SCH (08:23)
[2018-04-03] MEDS: LOPRESSOR TAB 25 MG PO SCH (08:23)
[2018-04-03] MEDS: COZAAR PO SCH (08:23)
--- NOTE | 2018-04-03 11:29 | VAS ---
History: Left leg pain Study: Doppler ultrasound of the deep veins of the left lower extremity Comparison: October 30, 2016 Findings: The deep veins from the left common femoral vein to the popliteal vein are widely patent wi th good color Doppler blood flow compression and augmentation. Impression: Negative, no evidence for deep venous thrombosis Reported By:
[2018-04-03] MEDS: NORMODYNE INJ 20 MG VIAL IVP PRN ×2 (13:40→16:14)
[2018-04-03] MEDS: MEGACE ORAL SUSP 400 MG/10 ML PO SCH (15:52)
--- NOTE | 2018-04-03 21:43 | PCM.PROG ---
Progress Note - Progress Note for Day of Date of Exam: 04/02/18 - Subjective Subjective: WAS ADMITTED FOR A LEFT LOWER EXTREMITY DVT. TODAY, SHE IS ALERT, LYING IN BED ON MORNING ROUNDS. STAFF REPORTS THAT SHE CONTINUES WITH CONFUSION AT TIMES. SHE IS REFUSING TO EAT. ON EXAMINATION, HEART IS REGULAR IN RATE AND RHYTHM. BILATERAL LUNGS CONTINUE WITH DIMINISHED LUNG SOUNDS THROUGHOUT. ABDOMEN IS ROUND, SOFT, AND NON-TENDER WITH NORMAL BOWEL SOUNDS NOTED IN ALL QUADRANTS. LEFT LOWER EXTREMITY CONTINUES WITH WARMTH, NO EDEMA NOTED. HER VITALS TODAY ARE 98.7-71-12-99%-197/80. HER BLOOD PRESSURE HAS BEEN ELEVATED THROUGHOUT THE NIGHT. LABS WERE OBTAINED. ABNORMAL LAB VALUES INCLUDE THE FOLLOWING: HGB 11.8, CREATININE 1.24, GLUCOSE 102, ALT 8, ALBUMIN 2.7. SHE CONTINUES ON ANTIBIOTICS FOR GROWTH OF E.COLI IN URINE. SHE ALSO CONTINUES ON A HEPARIN DRIP THIS MORNING AND IS ALSO RECEIVING COUMADIN 5MG AT BEDTIME. TODAY, WE WILL DISCONTINUE HCTZ AND INCREASE LOSARTAN TO 100MG PO DAILY. OTHERWISE, WE WILL FOLLOW UP WITH AM LABS AND CONTINUE TO MONITOR PATIENT. - Past Medical Family Social History Past Med/Fam/Surg Hx: No changes since H&P Allergies: Allergies codeine Allergy (Verified 03/29/18 14:17) penicillin G Allergy (Verified 03/29/18 14:17) - Review of Systems ROS: No change since H&P - Vital Signs and I&O's Vital Signs: Temperature 99.6 F Pulse Rate [Apical] 81 Respiratory Rate 13 Blood Pressure [Left Arm] 149/69 O2 Sat by Pulse Oximetry 97 Intake and Output: Intake & Output 04/01/18 04/02/18 04/03/18 04/04/18 11:59 11:59 11:59 11:59 Intake Total 210 / 2109 2719 / 2719 2544 / 2544 690 / 690 Output Total 2049 / 2049 2099 / 2099 2150 / 2150 500 / 500 Balance 59 / 59 619 / 619 394 / 394 190 / 190 - Physical Exam Oriented: Person, Place Eyes: Normal Ear: Normal Nose: Normal Throat: Normal Respiratory: Normal Cardiovascular: Normal : Normal Auscultation: Bowel Sounds: Normal Palpation: Normal Tenderness: Normal Skin: Tender (LEFT LOWER EXTREMITY ), Hot Musculoskeletal: Left, Leg, Swelling, Tender Psychiatric: Normal Mood Description: Calm Affect: Normal Speech Pattern: Clear, Appropriate - Laboratory and Diagnostics Result Diagrams: 04/03/18 04:05 04/03/18 04:05 Labs: 03/29/18 15:22 Urine,Catheterized Urine Culture - Final Escherichia Coli Laboratory WBC 6.0 X10^3/uL (3.6-10.0) 04/03/18 04:05 RBC 5.30 X10^6/uL (3.5-5.4) 04/03/18 04:05 Hgb 12.1 g/dL (12.0-16.0) 04/03/18 04:05 Hct 37.7 % (36.0-47.0) 04/03/18 04:05 MCV 71.1 fL (80.0-100.0) L 04/03/18 04:05 MCH 22.8 pg (27.0-34.0) L 04/03/18 04:05 MCHC 32.0 g/dL (33.0-35.0) L 04/03/18 04:05 RDW 15.1 % (11.6-16.5) 04/03/18 04:05 Plt Count 193 X10^3/uL (150.0-450.0) 04/03/18 04:05 Plt Count Comment Adequate (ADEQUATE) 04/03/18 04:05 MPV 8.7 fL (7.4-11.0) 04/03/18 04:05 Neut % (Auto) 68.2 % (42.0-75.0) 04/03/18 04:05 Lymph % (Auto) 16.8 % (21.0-51.0) L 04/03/18 04:05 [place] % (Auto) 13.5 % (0.0-13.0) H 04/03/18 04:05 Eos % (Auto) 0.9 % (0.9-2.9) 04/03/18 04:05 Baso % (Auto) 0.6 % (0.2-1.0) 04/03/18 04:05 Neut # (Auto) 4.1 x10^3/uL (2.2-4.8) 04/03/18 04:05 Lymph # (Auto) 1.0 X10^3/uL (1.3-2.9) L 04/03/18 04:05 [place] # (Auto) 0.8 x10^3/uL (0.3-0.8) 04/03/18 04:05 Eos # (Auto) 0.1 x10^3/uL (0.0-0.2) 04/03/18 04:05 Baso # (Auto) 0.0 X10^3/uL (0.0-0.1) 04/03/18 04:05 Absolute Nucleated RBC 0.0 /100WBC 04/03/18 04:05 Plt Morphology Comment Normal (NORMAL) 04/03/18 04:05 RBC Morphology Abnormal (NORMAL) A 04/03/18 04:05 Hypochromasia 1+ A 04/03/18 04:05 Poikilocytosis Slight A 03/30/18 04:08 Anisocytosis Slight A 04/03/18 04:05 Target Cells Slight A 03/30/18 04:08 Acanthocytes (Spur) Slight 03/30/18 04:08 INR Target Range - 04/03/18 04:05 INR 3.46 (0.8-1.3) H 04/03/18 04:05 APTT 90.7 SECONDS (22.9-36.5) H 04/03/18 09:52 PTT Comment - 04/03/18 09:52 Sodium 135 mmol/L (136-145) L 04/03/18 04:05 Corrected Sodium TNP 04/03/18 04:05 Potassium 4.2 mmol/L (3.5-5.1) 04/03/18 04:05 Chloride 101 mmol/L (98-107) 04/03/18 04:05 Carbon Dioxide 27.1 mmol/L (21-32) 04/03/18 04:05 BUN 17 mg/dL (7-18) 04/03/18 04:05 Creatinine 1.00 mg/dL (0.55-1.02) 04/03/18 04:05 Est GFR (MDRD) Af Amer > 60 (>60) 04/03/18 04:05 Est GFR (MDRD) Non-Af 56 (>60) L 04/03/18 04:05 Glucose 95 mg/dL (65-99) 04/03/18 04:05 Calcium 9.8 mg/dL (8.5-10.1) 04/03/18 04:05 Corrected Calcium 11.0 mg/dL (8.5-10.1) H 04/03/18 04:05 Total Bilirubin 0.40 mg/dL (0.2-1.0) 04/03/18 04:05 AST 18 Units/L (15-37) 04/03/18 04:05 ALT 10 Units/L (12-78) L 04/03/18 04:05 Alkaline Phosphatase 59 Units/L (46-116) 04/03/18 04:05 Total Protein 6.9 g/dL (6.4-8.2) 04/03/18 04:05 Albumin 2.5 g/dL (3.4-5.0) L 04/03/18 04:05 Globulin 4.4 g/dL (2.5-4.5) 04/03/18 04:05 Albumin/Globulin Ratio 0.6 Ratio (1.1-2.1) L 04/03/18 04:05 Specimen Type Catherized urine 03/29/18 15:22 Urine Color Yellow (YELLOW) 03/29/18 15:22 Urine Appearance Cloudy (CLEAR) 03/29/18 15:22 Urine pH 6.5 (5.0 - 8.0) 03/29/18 15:22 Ur Specific [place] 1.015 (1.000-1.030) 03/29/18 15:22 Urine Protein 2+ (NEGATIVE) 03/29/18 15:22 Urine Glucose (UA) Negative (NEGATIVE) 03/29/18 15:22 Urine Ketones Negative (NEGATIVE) 03/29/18 15:22 Urine Occult Blood 4+ (NEGATIVE) 03/29/18 15:22 Urine Nitrite Negative (NEGATIVE) 03/29/18 15:22 Urine Bilirubin Negative (NEGATIVE) 03/29/18 15:22 Urine Urobilinogen 1+ (NORMAL) 03/29/18 15:22 Ur Leukocyte Esterase 1+ (NEGATIVE) 03/29/18 15:22 Urine RBC 3-5 /HPF (NONE SEEN) 03/29/18 15:22 Urine WBC 3-5 /HPF (NONE SEEN) 03/29/18 15:22 Ur Squamous Epith Cells Few /HPF (NEGATIVE) 03/29/18 15:22 Amorphous Sediment Trace /HPF (NEGATIVE) 03/29/18 15:22 Urine Bacteria 3+ /HPF (NEGATIVE) 03/29/18 15:22 Urine Yeast Few /HPF (NEGATIVE) 03/29/18 15:22 Ur Culture Indicated? Yes/culture set up 03/29/18 15:22 - Plan (1) DVT (deep venous thrombosis) Status: Acute Qualifiers: DVT location: lower extremity Affected thrombotic vein of extremity: unspecified vein of extremity Chronicity: acute Laterality: left Qualified Code(s): I82.402 - Acute embolism and thrombosis of unspecified deep veins of left lower extremity Plan: HEPARIN DRIP, COUMADIN 5MG HS, CONTINUE TO MONITOR (2) UTI (urinary tract infection) Status: Acute Qualifiers: Urinary tract infection type: acute cystitis Hematuria presence: without hematuria Qualified Code(s): N30.00 - Acute cystitis without hematuria Plan: CIPRO 200MG IV BID, CONTINUE TO MONITOR (3) Dementia Status: Acute Qualifiers: Dementia type: vascular dementia Dementia behavioral disturbance: without behavioral disturbance Qualified Code(s): F01.50 - Vascular dementia without behavioral disturbance (4) Hypertension Status: Acute Qualifiers: Hypertension type: essential hypertension Qualified Code(s): I10 - Essential (primary) hypertension Plan: RESUME HOME MEDICATIONS
[2018-04-04 05:20] LABS: BASOPHILS % (AUTO) 0.5 % (0.2-1.0); EOSINOPHILS % (AUTO) 0.1 % (0.9-2.9); HEMATOCRIT 35.8 % (36.0-47.0); HEMOGLOBIN 11.8 g/dL (12.0-16.0); LYMPHOCYTES # (AUTO) 1.2 X10^3/uL (1.3-2.9); LYMPHOCYTES % (AUTO) 12.1 % (21.0-51.0); MEAN CORPUSCULAR HEMOGLOBIN 23.4 pg (27.0-34.0); MEAN CORPUSCULAR HGB CONC 32.9 g/dL (33.0-35.0); MEAN PLATELET VOLUME 8.8 fL (7.4-11.0); MONOCYTES # (AUTO) 1.3 x10^3/uL (0.3-0.8); MONOCYTES % (AUTO) 13.9 % (0.0-13.0); NEUTROPHILS % (AUTO) 73.4 % (42.0-75.0); PLATELET COUNT 208 X10^3/uL (150.0-450.0); RED BLOOD COUNT 5.04 X10^6/uL (3.5-5.4); RED CELL DISTRIBUTION WIDTH 14.9 % (11.6-16.5); WHITE BLOOD COUNT 9.6 X10^3/uL (3.6-10.0)
[2018-04-04 05:41] LABS: ALANINE AMINOTRANSFERASE 9 Units/L (12-78); ALBUMIN 2.3 g/dL (3.4-5.0); ALKALINE PHOSPHATASE 53 Units/L (46-116); ASPARTATE AMINO TRANSFERASE 19 Units/L (15-37); BLOOD UREA NITROGEN 17 mg/dL (7-18); CALCIUM 9.8 mg/dL (8.5-10.1); CARBON DIOXIDE 28.2 mmol/L (21-32); CHLORIDE 101 mmol/L (98-107); COR CA(FOR HYPOALB) 11.2 mg/dL (8.5-10.1); CREATININE 0.92 mg/dL (0.55-1.02); SODIUM 134 mmol/L (136-145); TOTAL PROTEIN 6.9 g/dL (6.4-8.2); eGFR NON BLACK RACES > 60 (>60)
[2018-04-04] MEDS: SINEMET (PLAIN) 25/250 MG PO SCH ×3 (05:51→21:02)
[2018-04-04] MEDS: ULTRAM PO SCH ×3 (05:52→21:02)
[2018-04-04] MEDS: MEGACE ORAL SUSP 400 MG/10 ML PO SCH ×2 (05:53→16:43)
[2018-04-04 06:01] LABS: ANISOCYTOSIS SLIGHT; HYPOCHROMASIA 1+; PLATELET MORPHOLOGY COMMENT NORMAL (NORMAL)
--- NOTE | 2018-04-04 08:15 | PCM.PROG ---
Progress Note - Progress Note for Day of Date of Exam: 04/03/18 - Subjective Subjective: WAS ADMITTED FOR A LEFT LOWER EXTREMITY DVT. TODAY, SHE IS ALERT, LYING IN BED ON MORNING ROUNDS. FAMILY AT BEDSIDE. THEY REPORT THAT THEY ARE UNABLE TO GET HER TO EAT. ON EXAMINATION, HEART IS REGULAR IN RATE AND RHYTHM. BILATERAL LUNGS CONTINUE WITH DIMINISHED LUNG SOUNDS THROUGHOUT. ABDOMEN IS ROUND, SOFT, AND NON-TENDER WITH NORMAL BOWEL SOUNDS NOTED IN ALL QUADRANTS. LEFT LOWER EXTREMITY HAS RETURNED TO BASELINE. HER VITALS TODAY ARE 98.5-74-12-99%-163/71. LABS WERE OBTAINED. ABNORMAL LAB VALUES INCLUDE THE FOLLOWING: SODIUM 135, ALT 10, ALBUMIN 2.5. INR IS 3.46 TODAY. SHE CONTINUES ON ANTIBIOTICS FOR GROWTH OF E.COLI IN URINE. SHE ALSO CONTINUES ON A HEPARIN DRIP THIS MORNING AND IS ALSO RECEIVING COUMADIN 5MG AT BEDTIME. TODAY, WE WILL DISCONTINUE HEPARIN AND HOLD COUMADIN TONIGHT. WE WILL REPEAT A LEFT LOWER EXTREMITY VENOUS DOPPLER AND START [place] 40MG PO BID. OTHERWISE, WE WILL FOLLOW UP WITH AM LABS AND CONTINUE TO MONITOR PATIENT. - Past Medical Family Social History Past Med/Fam/Surg Hx: No changes since H&P Allergies: Allergies codeine Allergy (Verified 03/29/18 14:17) penicillin G Allergy (Verified 03/29/18 14:17) - Review of Systems ROS: No change since H&P - Vital Signs and I&O's Vital Signs: Temperature 100.2 F Pulse Rate [Apical] 83 Respiratory Rate 15 Blood Pressure [Left Arm] 170/83 O2 Sat by Pulse Oximetry 99 Intake and Output: Intake & Output 04/01/18 04/02/18 04/03/18 04/04/18 11:59 11:59 11:59 11:59 Intake Total 2108 / 2108 2719 / 2719 2544 / 2544 2035 Output Total 2049 Balance 59 / 59 619 / 619 394 / 394 -64 / -64 - Physical Exam Oriented: Person, Place Eyes: Normal Ear: Normal Nose: Normal Throat: Normal Respiratory: Normal Cardiovascular: Normal : Normal Auscultation: Bowel Sounds: Normal Palpation: Normal Tenderness: Normal Skin: Normal Musculoskeletal: Normal Psychiatric: Normal Mood Description: Calm Affect: Normal Speech Pattern: Clear, Appropriate - Laboratory and Diagnostics Result Diagrams: 04/04/18 04:25 04/04/18 04:25 Labs: 03/29/18 15:22 Urine,Catheterized Urine Culture - Final Escherichia Coli Laboratory WBC 9.6 X10^3/uL (3.6-10.0) 04/04/18 04:25 RBC 5.04 X10^6/uL (3.5-5.4) 04/04/18 04:25 Hgb 11.8 g/dL (12.0-16.0) L 04/04/18 04:25 Hct 35.8 % (36.0-47.0) L 04/04/18 04:25 MCV 71.0 fL (80.0-100.0) L 04/04/18 04:25 MCH 23.4 pg (27.0-34.0) L 04/04/18 04:25 MCHC 32.9 g/dL (33.0-35.0) L 04/04/18 04:25 RDW 14.9 % (11.6-16.5) 04/04/18 04:25 Plt Count 208 X10^3/uL (150.0-450.0) 04/04/18 04:25 Plt Count Comment Adequate (ADEQUATE) 04/04/18 04:25 MPV 8.8 fL (7.4-11.0) 04/04/18 04:25 Neut % (Auto) 73.4 % (42.0-75.0) 04/04/18 04:25 Lymph % (Auto) 12.1 % (21.0-51.0) L 04/04/18 04:25 [place] % (Auto) 13.9 % (0.0-13.0) H 04/04/18 04:25 Eos % (Auto) 0.1 % (0.9-2.9) L 04/04/18 04:25 Baso % (Auto) 0.5 % (0.2-1.0) 04/04/18 04:25 Neut # (Auto) 7.0 x10^3/uL (2.2-4.8) H 04/04/18 04:25 Lymph # (Auto) 1.2 X10^3/uL (1.3-2.9) L 04/04/18 04:25 [place] # (Auto) 1.3 x10^3/uL (0.3-0.8) H 04/04/18 04:25 Eos # (Auto) 0.0 x10^3/uL (0.0-0.2) 04/04/18 04:25 Baso # (Auto) 0.0 X10^3/uL (0.0-0.1) 04/04/18 04:25 Absolute Nucleated RBC 0.0 /100WBC 04/04/18 04:25 Plt Morphology Comment Normal (NORMAL) 04/04/18 04:25 RBC Morphology Abnormal (NORMAL) A 04/04/18 04:25 Hypochromasia 1+ A 04/04/18 04:25 Poikilocytosis Slight A 03/30/18 04:08 Anisocytosis Slight A 04/04/18 04:25 Target Cells Slight A 03/30/18 04:08 Acanthocytes (Spur) Slight 03/30/18 04:08 INR Target Range - 04/03/18 04:05 INR 3.46 (0.8-1.3) H 04/03/18 04:05 APTT 90.7 SECONDS (22.9-36.5) H 04/03/18 09:52 PTT Comment - 04/03/18 09:52 Sodium 134 mmol/L (136-145) L 04/04/18 04:25 Corrected Sodium TNP 04/04/18 04:25 Potassium 4.2 mmol/L (3.5-5.1) 04/04/18 04:25 Chloride 101 mmol/L (98-107) 04/04/18 04:25 Carbon Dioxide 28.2 mmol/L (21-32) 04/04/18 04:25 BUN 17 mg/dL (7-18) 04/04/18 04:25 Creatinine 0.92 mg/dL (0.55-1.02) 04/04/18 04:25 Est GFR (MDRD) Af Amer > 60 (>60) 04/04/18 04:25 Est GFR (MDRD) Non-Af > 60 (>60) 04/04/18 04:25 Glucose 96 mg/dL (65-99) 04/04/18 04:25 Calcium 9.8 mg/dL (8.5-10.1) 04/04/18 04:25 Corrected Calcium 11.2 mg/dL (8.5-10.1) H 04/04/18 04:25 Total Bilirubin 0.50 mg/dL (0.2-1.0) 04/04/18 04:25 AST 19 Units/L (15-37) 04/04/18 04:25 ALT 9 Units/L (12-78) L 04/04/18 04:25 Alkaline Phosphatase 53 Units/L (46-116) 04/04/18 04:25 Total Protein 6.9 g/dL (6.4-8.2) 04/04/18 04:25 Albumin 2.3 g/dL (3.4-5.0) L 04/04/18 04:25 Globulin 4.6 g/dL (2.5-4.5) H 04/04/18 04:25 Albumin/Globulin Ratio 0.5 Ratio (1.1-2.1) L 04/04/18 04:25 Specimen Type Catherized urine 03/29/18 15:22 Urine Color Yellow (YELLOW) 03/29/18 15:22 Urine Appearance Cloudy (CLEAR) 03/29/18 15:22 Urine pH 6.5 (5.0 - 8.0) 03/29/18 15:22 Ur Specific [place] 1.015 (1.000-1.030) 03/29/18 15:22 Urine Protein 2+ (NEGATIVE) 03/29/18 15:22 Urine Glucose (UA) Negative (NEGATIVE) 03/29/18 15:22 Urine Ketones Negative (NEGATIVE) 03/29/18 15:22 Urine Occult Blood 4+ (NEGATIVE) 03/29/18 15:22 Urine Nitrite Negative (NEGATIVE) 03/29/18 15:22 Urine Bilirubin Negative (NEGATIVE) 03/29/18 15:22 Urine Urobilinogen 1+ (NORMAL) 03/29/18 15:22 Ur Leukocyte Esterase 1+ (NEGATIVE) 03/29/18 15:22 Urine RBC 3-5 /HPF (NONE SEEN) 03/29/18 15:22 Urine WBC 3-5 /HPF (NONE SEEN) 03/29/18 15:22 Ur Squamous Epith Cells Few /HPF (NEGATIVE) 03/29/18 15:22 Amorphous Sediment Trace /HPF (NEGATIVE) 03/29/18 15:22 Urine Bacteria 3+ /HPF (NEGATIVE) 03/29/18 15:22 Urine Yeast Few /HPF (NEGATIVE) 03/29/18 15:22 Ur Culture Indicated? Yes/culture set up 03/29/18 15:22 - Plan (1) DVT (deep venous thrombosis) Status: Acute Qualifiers: DVT location: lower extremity Affected thrombotic vein of extremity: unspecified vein of extremity Chronicity: acute Laterality: left Qualified Code(s): I82.402 - Acute embolism and thrombosis of unspecified deep veins of left lower extremity Plan: REPEAT VENOUS DOPPLER, DISCONTINUE HEPARIN DRIP, HOLD COUMADIN DUE TO ELEVATED INR, CONTINUE TO MONITOR (2) UTI (urinary tract infection) Status: Acute Qualifiers: Urinary tract infection type: acute cystitis Hematuria presence: without hematuria Qualified Code(s): N30.00 - Acute cystitis without hematuria Plan: CIPRO 200MG IV BID, CONTINUE TO MONITOR (3) Dementia Status: Acute Qualifiers: Dementia type: vascular dementia Dementia behavioral disturbance: without behavioral disturbance Qualified Code(s): F01.50 - Vascular dementia without behavioral disturbance Plan: OBTAIN BRAIN CT TODAY DUE TO INCREASED CONFUSION AND WEAKNESS (4) Hypertension Status: Acute Qualifiers: Hypertension type: essential hypertension Qualified Code(s): I10 - Essential (primary) hypertension Plan: RESUME HOME MEDICATIONS
[2018-04-04] MEDS: COZAAR PO SCH (08:18)
[2018-04-04] MEDS: ISOSORBIDE MONONITRATE ER PO SCH (08:18)
[2018-04-04] MEDS: ALDACTONE TAB 25 MG PO SCH (08:18)
[2018-04-04] MEDS: ROCEPHIN 1 GRAM IV PREMIX 1 G/50 ML IV.SOLN. IV SCH (08:18)
[2018-04-04] MEDS: LOPRESSOR TAB 25 MG PO SCH (08:19)
[2018-04-04] MEDS: NS 1000 ML 1,000 ML IV SCH ×2 (08:21→22:36)
[2018-04-04] MEDS: XANAX PO PRN ×2 (09:14→21:01)
[2018-04-04] MEDS ORDERED: HALDOL INJ IVP ONE (09:21)
[2018-04-04] MEDS ORDERED: HALDOL INJ ONE (09:22)
--- NOTE | 2018-04-04 13:49 | VAS ---
HISTORY: Right leg pain, history of DVT Study: Right lower extremity venous Doppler Comparison: October 30, 2016 and April 03, 2018 TECHNIQUE: Multiple herr scale as well as spectral and color flow Doppler images of the deep venous system were obtained of the right lower extremity. FINDINGS: The deep venous system of the right lower extremity was evaluated from the level of the common femora l vein through the popliteal vein. Normal color flow and augmentation can be observed. In addition, normal compression is seen throughout the deep venous system. IMPRESSION: Negative for DVT. Reported By:
[2018-04-04] MEDS: COUMADIN TAB 5 MG PO SCH (20:58)
[2018-04-05] MEDS: NS 1000 ML 1,000 ML IV SCH ×2 (02:33→21:07)
[2018-04-05 05:27] LABS: BASOPHILS % (AUTO) 0.3 % (0.2-1.0); EOSINOPHILS % (AUTO) 0.4 % (0.9-2.9); HEMATOCRIT 32.7 % (36.0-47.0); HEMOGLOBIN 10.7 g/dL (12.0-16.0); LYMPHOCYTES # (AUTO) 1.3 X10^3/uL (1.3-2.9); LYMPHOCYTES % (AUTO) 16.2 % (21.0-51.0); MEAN CORPUSCULAR HEMOGLOBIN 23.1 pg (27.0-34.0); MEAN CORPUSCULAR HGB CONC 32.7 g/dL (33.0-35.0); MEAN CORPUSCULAR VOLUME 70.5 fL (80.0-100.0); MEAN PLATELET VOLUME 8.8 fL (7.4-11.0); MONOCYTES % (AUTO) 12.8 % (0.0-13.0); NEUTROPHILS # (AUTO) 5.7 x10^3/uL (2.2-4.8); NEUTROPHILS % (AUTO) 70.3 % (42.0-75.0); PLATELET COUNT 210 X10^3/uL (150.0-450.0); RED BLOOD COUNT 4.63 X10^6/uL (3.5-5.4); RED CELL DISTRIBUTION WIDTH 14.6 % (11.6-16.5); WHITE BLOOD COUNT 8.1 X10^3/uL (3.6-10.0)
[2018-04-05 05:39] LABS: ALANINE AMINOTRANSFERASE 9 Units/L (12-78); ALKALINE PHOSPHATASE 47 Units/L (46-116); ASPARTATE AMINO TRANSFERASE 31 Units/L (15-37); BLOOD UREA NITROGEN 22 mg/dL (7-18); CALCIUM 9.8 mg/dL (8.5-10.1); CARBON DIOXIDE 28.2 mmol/L (21-32); CHLORIDE 103 mmol/L (98-107); COR CA(FOR HYPOALB) 11.4 mg/dL (8.5-10.1); CREATININE 1.07 mg/dL (0.55-1.02); SODIUM 137 mmol/L (136-145); TOTAL PROTEIN 6.2 g/dL (6.4-8.2); eGFR NON BLACK RACES 52 (>60)
[2018-04-05] MEDS: SINEMET (PLAIN) 25/250 MG PO SCH ×4 (05:43→21:08)
[2018-04-05] MEDS: ULTRAM PO SCH ×3 (05:44→21:07)
[2018-04-05] MEDS: MEGACE ORAL SUSP 400 MG/10 ML PO SCH ×2 (05:44→17:09)
[2018-04-05 06:13] LABS: HYPOCHROMASIA 1+; PLATELET MORPHOLOGY COMMENT NORMAL (NORMAL); POIKILOCYTOSIS SLIGHT
[2018-04-05 06:14] LABS: CRENATED RBC SLIGHT; OVALOCYTES SLIGHT
--- NOTE | 2018-04-05 08:19 | PCM.PROG ---
Progress Note - Progress Note for Day of Date of Exam: 04/04/18 - Subjective Subjective: WAS ADMITTED FOR A LEFT LOWER EXTREMITY DVT. TODAY, SHE IS ALERT, LYING IN BED ON MORNING ROUNDS. PATIENT IS CONFUSED AND APPEARS TO BE ANXIOUS THIS MORNING. ON EXAMINATION, HEART IS REGULAR IN RATE AND RHYTHM. BILATERAL LUNGS CONTINUE WITH DIMINISHED LUNG SOUNDS THROUGHOUT. ABDOMEN IS ROUND, SOFT, AND NON-TENDER WITH NORMAL BOWEL SOUNDS NOTED IN ALL QUADRANTS. LEFT LOWER EXTREMITY HAS RETURNED TO BASELINE. SHE DOES MOAN OUT WHEN BILATERAL LOWER EXTREMITIES ARE EXAMINED. HER VITALS TODAY ARE 99.5-81-16-98%-169/79. LABS WERE OBTAINED. ABNORMAL LAB VALUES INCLUDE THE FOLLOWING: HGB 11.8, HCT 35.8, SODIUM 134, ALT 9, ALBUMIN 2.6, GLOBULIN 4.6, INR 4.30. TODAY, SHE CONTINUES ON ANTIBIOTICS FOR GROWTH OF E.COLI IN URINE. WE HELD COUMADIN LAST NIGHT DUE TO ELEVATED INR. TODAY, WE WILL OBTAIN A RIGHT LOWER EXTREMITY VENOUS DOPPLER. WE WILL CONTINUE TO HOLD COUMADIN TONIGHT DUE TO ELEVATED INR. OTHERWISE, WE WILL FOLLOW UP WITH AM LABS AND CONTINUE TO MONITOR PATIENT. - Past Medical Family Social History Past Med/Fam/Surg Hx: No changes since H&P Allergies: Allergies codeine Allergy (Verified 03/29/18 14:17) penicillin G Allergy (Verified 03/29/18 14:17) - Review of Systems ROS: No change since H&P - Vital Signs and I&O's Vital Signs: Temperature 98.3 F Pulse Rate [Apical] 73 Respiratory Rate 14 Blood Pressure [Left Arm] 167/77 O2 Sat by Pulse Oximetry 100 Intake and Output: Intake & Output 04/02/18 04/03/18 04/04/18 04/05/18 11:59 11:59 11:59 11:59 Intake Total 2719 / 2719 2544 / 2544 203 / 2035 2413 / 2413 Output Total 2099 / 2099 2150 / 2150 2099 / 2099 1150 / 1150 Balance 619 / 619 394 / 394 -64 / -64 1263 / 1263 - Physical Exam Oriented: Person, Place Eyes: Normal Ear: Normal Nose: Normal Throat: Normal Respiratory: Normal Cardiovascular: Normal : Normal Auscultation: Bowel Sounds: Normal Tenderness: Normal Skin: Normal Musculoskeletal: Right, Left, Leg, Tender Psychiatric: Normal Mood Description: Calm Affect: Normal Speech Pattern: Clear, Appropriate - Laboratory and Diagnostics Result Diagrams: 04/05/18 04:36 04/05/18 04:36 Labs: 03/29/18 15:22 Urine,Catheterized Urine Culture - Final Escherichia Coli Laboratory WBC 8.1 X10^3/uL (3.6-10.0) 04/05/18 04:36 RBC 4.63 X10^6/uL (3.5-5.4) 04/05/18 04:36 Hgb 10.7 g/dL (12.0-16.0) L 04/05/18 04:36 Hct 32.7 % (36.0-47.0) L 04/05/18 04:36 MCV 70.5 fL (80.0-100.0) L 04/05/18 04:36 MCH 23.1 pg (27.0-34.0) L 04/05/18 04:36 MCHC 32.7 g/dL (33.0-35.0) L 04/05/18 04:36 RDW 14.6 % (11.6-16.5) 04/05/18 04:36 Plt Count 210 X10^3/uL (150.0-450.0) 04/05/18 04:36 Plt Count Comment Adequate (ADEQUATE) 04/05/18 04:36 MPV 8.8 fL (7.4-11.0) 04/05/18 04:36 Neut % (Auto) 70.3 % (42.0-75.0) 04/05/18 04:36 Lymph % (Auto) 16.2 % (21.0-51.0) L 04/05/18 04:36 [place] % (Auto) 12.8 % (0.0-13.0) 04/05/18 04:36 Eos % (Auto) 0.4 % (0.9-2.9) L 04/05/18 04:36 Baso % (Auto) 0.3 % (0.2-1.0) 04/05/18 04:36 Neut # (Auto) 5.7 x10^3/uL (2.2-4.8) H 04/05/18 04:36 Lymph # (Auto) 1.3 X10^3/uL (1.3-2.9) 04/05/18 04:36 [place] # (Auto) 1.0 x10^3/uL (0.3-0.8) H 04/05/18 04:36 Eos # (Auto) 0.0 x10^3/uL (0.0-0.2) 04/05/18 04:36 Baso # (Auto) 0.0 X10^3/uL (0.0-0.1) 04/05/18 04:36 Absolute Nucleated RBC 0.0 /100WBC 04/05/18 04:36 Plt Morphology Comment Normal (NORMAL) 04/05/18 04:36 RBC Morphology Abnormal (NORMAL) A 04/05/18 04:36 Hypochromasia 1+ A 04/05/18 04:36 Poikilocytosis Slight A 04/05/18 04:36 Anisocytosis Slight A 04/04/18 04:25 Target Cells Slight A 03/30/18 04:08 Ovalocytes Slight A 04/05/18 04:36 Crenated Cell Slight A 04/05/18 04:36 Acanthocytes (Spur) Slight 04/05/18 04:36 INR Target Range - 04/05/18 04:36 INR 4.55 (0.8-1.3) H 04/05/18 04:36 APTT 90.7 SECONDS (22.9-36.5) H 04/03/18 09:52 PTT Comment - 04/03/18 09:52 Sodium 137 mmol/L (136-145) 04/05/18 04:36 Corrected Sodium TNP 04/05/18 04:36 Potassium 4.2 mmol/L (3.5-5.1) 04/05/18 04:36 Chloride 103 mmol/L (98-107) 04/05/18 04:36 Carbon Dioxide 28.2 mmol/L (21-32) 04/05/18 04:36 BUN 22 mg/dL (7-18) H 04/05/18 04:36 Creatinine 1.07 mg/dL (0.55-1.02) H 04/05/18 04:36 Est GFR (MDRD) Af Amer > 60 (>60) 04/05/18 04:36 Est GFR (MDRD) Non-Af 52 (>60) L 04/05/18 04:36 Glucose 87 mg/dL (65-99) 04/05/18 04:36 Calcium 9.8 mg/dL (8.5-10.1) 04/05/18 04:36 Corrected Calcium 11.4 mg/dL (8.5-10.1) H 04/05/18 04:36 Total Bilirubin 0.40 mg/dL (0.2-1.0) 04/05/18 04:36 AST 31 Units/L (15-37) 04/05/18 04:36 ALT 9 Units/L (12-78) L 04/05/18 04:36 Alkaline Phosphatase 47 Units/L (46-116) 04/05/18 04:36 Total Protein 6.2 g/dL (6.4-8.2) L 04/05/18 04:36 Albumin 2.0 g/dL (3.4-5.0) L 04/05/18 04:36 Globulin 4.2 g/dL (2.5-4.5) 04/05/18 04:36 Albumin/Globulin Ratio 0.5 Ratio (1.1-2.1) L 04/05/18 04:36 Specimen Type Catherized urine 03/29/18 15:22 Urine Color Yellow (YELLOW) 03/29/18 15:22 Urine Appearance Cloudy (CLEAR) 03/29/18 15:22 Urine pH 6.5 (5.0 - 8.0) 03/29/18 15:22 Ur Specific [place] 1.015 (1.000-1.030) 03/29/18 15:22 Urine Protein 2+ (NEGATIVE) 03/29/18 15:22 Urine Glucose (UA) Negative (NEGATIVE) 03/29/18 15:22 Urine Ketones Negative (NEGATIVE) 03/29/18 15:22 Urine Occult Blood 4+ (NEGATIVE) 03/29/18 15:22 Urine Nitrite Negative (NEGATIVE) 03/29/18 15:22 Urine Bilirubin Negative (NEGATIVE) 03/29/18 15:22 Urine Urobilinogen 1+ (NORMAL) 03/29/18 15:22 Ur Leukocyte Esterase 1+ (NEGATIVE) 03/29/18 15:22 Urine RBC 3-5 /HPF (NONE SEEN) 03/29/18 15:22 Urine WBC 3-5 /HPF (NONE SEEN) 03/29/18 15:22 Ur Squamous Epith Cells Few /HPF (NEGATIVE) 03/29/18 15:22 Amorphous Sediment Trace /HPF (NEGATIVE) 03/29/18 15:22 Urine Bacteria 3+ /HPF (NEGATIVE) 03/29/18 15:22 Urine Yeast Few /HPF (NEGATIVE) 03/29/18 15:22 Ur Culture Indicated? Yes/culture set up 03/29/18 15:22 - Plan (1) DVT (deep venous thrombosis) Status: Acute Qualifiers: DVT location: lower extremity Affected thrombotic vein of extremity: unspecified vein of extremity Chronicity: acute Laterality: left Qualified Code(s): I82.402 - Acute embolism and thrombosis of unspecified deep veins of left lower extremity Plan: HOLD COUMADIN DUE TO ELEVATED INR, CONTINUE TO MONITOR (2) UTI (urinary tract infection) Status: Acute Qualifiers: Urinary tract infection type: acute cystitis Hematuria presence: without hematuria Qualified Code(s): N30.00 - Acute cystitis without hematuria Plan: CIPRO 200MG IV BID, CONTINUE TO MONITOR (3) Dementia Status: Acute Qualifiers: Dementia type: vascular dementia Dementia behavioral disturbance: without behavioral disturbance Qualified Code(s): F01.50 - Vascular dementia without behavioral disturbance Plan: OBTAIN BRAIN CT TODAY DUE TO INCREASED CONFUSION AND WEAKNESS (4) Hypertension Status: Acute Qualifiers: Hypertension type: essential hypertension Qualified Code(s): I10 - Essential (primary) hypertension Plan: RESUME HOME MEDICATIONS
[2018-04-05] MEDS: LOPRESSOR TAB 25 MG PO SCH (09:10)
[2018-04-05] MEDS: ALDACTONE TAB 25 MG PO SCH (09:10)
[2018-04-05] MEDS: COZAAR PO SCH (09:10)
[2018-04-05] MEDS: ISOSORBIDE MONONITRATE ER PO SCH (09:10)
[2018-04-05] MEDS: ROCEPHIN 1 GRAM IV PREMIX 1 G/50 ML IV.SOLN. IV SCH (09:11)
[2018-04-05] MEDS: COLACE CAP 100 MG PO SCH (21:07)
[2018-04-06] MEDS: NORMODYNE INJ 20 MG VIAL IVP PRN (01:54)
[2018-04-06 06:08] LABS: BASOPHILS % (AUTO) 0 % (0.2-1.0); HEMATOCRIT 35.1 % (36.0-47.0); HEMOGLOBIN 11.5 g/dL (12.0-16.0); LYMPHOCYTES # (AUTO) 0.2 X10^3/uL (1.3-2.9); LYMPHOCYTES % (AUTO) 2.9 % (21.0-51.0); MEAN CORPUSCULAR HEMOGLOBIN 23.3 pg (27.0-34.0); MEAN CORPUSCULAR HGB CONC 32.7 g/dL (33.0-35.0); MEAN PLATELET VOLUME 7.5 fL (7.4-11.0); MONOCYTES # (AUTO) 0.1 x10^3/uL (0.3-0.8); MONOCYTES % (AUTO) 1.9 % (0.0-13.0); NEUTROPHILS # (AUTO) 6.7 x10^3/uL (2.2-4.8); NEUTROPHILS % (AUTO) 95.2 % (42.0-75.0); PLATELET COUNT 221 X10^3/uL (150.0-450.0); RED BLOOD COUNT 4.94 X10^6/uL (3.5-5.4); RED CELL DISTRIBUTION WIDTH 14.8 % (11.6-16.5)
[2018-04-06] MEDS: SINEMET (PLAIN) 25/250 MG PO SCH ×3 (06:08→21:55)
[2018-04-06] MEDS: ULTRAM PO SCH ×3 (06:09→21:55)
[2018-04-06 06:30] LABS: ALANINE AMINOTRANSFERASE 24 Units/L (12-78); ALBUMIN 2.1 g/dL (3.4-5.0); ALKALINE PHOSPHATASE 57 Units/L (46-116); ASPARTATE AMINO TRANSFERASE 75 Units/L (15-37); BLOOD UREA NITROGEN 23 mg/dL (7-18); CALCIUM 10.2 mg/dL (8.5-10.1); CARBON DIOXIDE 24.8 mmol/L (21-32); CHLORIDE 103 mmol/L (98-107); COR CA(FOR HYPOALB) 11.7 mg/dL (8.5-10.1); CREATININE 0.94 mg/dL (0.55-1.02); SODIUM 136 mmol/L (136-145); eGFR NON BLACK RACES > 60 (>60)
[2018-04-06 06:36] LABS: BAND NEUTROPHILS % 1 % (0-10); BURR CELLS 1+; HYPOCHROMASIA 1+; PLATELET MORPHOLOGY COMMENT NORMAL (NORMAL)
[2018-04-06] MEDS: ROCEPHIN 1 GRAM IV PREMIX 1 G/50 ML IV.SOLN. IV SCH (08:41)
[2018-04-06] MEDS: ISOSORBIDE MONONITRATE ER PO SCH ×2 (08:41→12:27)
[2018-04-06] MEDS: ALDACTONE TAB 25 MG PO SCH ×2 (08:41→12:26)
[2018-04-06] MEDS: COZAAR PO SCH ×2 (08:41→12:27)
[2018-04-06] MEDS: LOPRESSOR TAB 25 MG PO SCH ×2 (08:42→12:26)
[2018-04-06] MEDS: NS 1000 ML 1,000 ML IV SCH (17:42)
[2018-04-06] MEDS: MEGACE ORAL SUSP 400 MG/10 ML PO SCH (17:43)
[2018-04-06] MEDS: MILK OF MAGNESIA PO PRN (20:06)
[2018-04-06] MEDS: COLACE CAP 100 MG PO SCH (20:07)
[2018-04-07] MEDS: NORMODYNE INJ 20 MG VIAL IVP PRN ×5 (00:10→20:20)
[2018-04-07 05:25] LABS: BASOPHILS % (AUTO) 0.3 % (0.2-1.0); HEMATOCRIT 30.6 % (36.0-47.0); HEMOGLOBIN 10.1 g/dL (12.0-16.0); LYMPHOCYTES # (AUTO) 0.9 X10^3/uL (1.3-2.9); LYMPHOCYTES % (AUTO) 9.7 % (21.0-51.0); MEAN CORPUSCULAR HGB CONC 32.9 g/dL (33.0-35.0); MEAN CORPUSCULAR VOLUME 69.9 fL (80.0-100.0); MEAN PLATELET VOLUME 7.8 fL (7.4-11.0); MONOCYTES # (AUTO) 0.9 x10^3/uL (0.3-0.8); MONOCYTES % (AUTO) 9.6 % (0.0-13.0); NEUTROPHILS # (AUTO) 7.5 x10^3/uL (2.2-4.8); NEUTROPHILS % (AUTO) 80.4 % (42.0-75.0); PLATELET COUNT 267 X10^3/uL (150.0-450.0); RED BLOOD COUNT 4.37 X10^6/uL (3.5-5.4); RED CELL DISTRIBUTION WIDTH 14.6 % (11.6-16.5); WHITE BLOOD COUNT 9.3 X10^3/uL (3.6-10.0)
[2018-04-07 05:37] LABS: ALANINE AMINOTRANSFERASE 71 Units/L (12-78); ALBUMIN 1.7 g/dL (3.4-5.0); ALKALINE PHOSPHATASE 48 Units/L (46-116); ASPARTATE AMINO TRANSFERASE 136 Units/L (15-37); BLOOD UREA NITROGEN 30 mg/dL (7-18); CALCIUM 9.5 mg/dL (8.5-10.1); CHLORIDE 108 mmol/L (98-107); COR CA(FOR HYPOALB) 11.3 mg/dL (8.5-10.1); CREATININE 0.93 mg/dL (0.55-1.02); SODIUM 140 mmol/L (136-145); TOTAL PROTEIN 6.1 g/dL (6.4-8.2); eGFR NON BLACK RACES > 60 (>60)
[2018-04-07] MEDS: SINEMET (PLAIN) 25/250 MG PO SCH ×3 (05:44→22:20)
[2018-04-07] MEDS: MEGACE ORAL SUSP 400 MG/10 ML PO SCH ×2 (05:44→16:42)
[2018-04-07] MEDS: ULTRAM PO SCH ×3 (05:45→22:21)
[2018-04-07] MEDS: MILK OF MAGNESIA PO PRN ×2 (05:58→20:15)
[2018-04-07] MEDS: NS 1000 ML 1,000 ML IV SCH ×3 (06:04→19:15)
[2018-04-07 06:18] LABS: HYPOCHROMASIA 1+; MICROCYTOSIS 1+; PLATELET MORPHOLOGY COMMENT NORMAL (NORMAL)
[2018-04-07] MEDS: ISOSORBIDE MONONITRATE ER PO SCH (08:19)
[2018-04-07] MEDS: ALDACTONE TAB 25 MG PO SCH (08:19)
[2018-04-07] MEDS: COZAAR PO SCH (08:19)
[2018-04-07] MEDS: ROCEPHIN 1 GRAM IV PREMIX 1 G/50 ML IV.SOLN. IV SCH (08:20)
[2018-04-07] MEDS: LOPRESSOR TAB 25 MG PO SCH (08:20)
[2018-04-07] MEDS ORDERED: AQUA-MEPHYTON ADULT INJ SC ONE (08:55)
--- NOTE | 2018-04-07 11:53 | PCM.PROG ---
Progress Note - Progress Note for Day of Date of Exam: 04/05/18 - Subjective Subjective: WAS ADMITTED FOR A LEFT LOWER EXTREMITY DVT. TODAY, SHE IS LYING IN BED WITH EYES CLOSED ON MORNING ROUNDS. SHE IS DIFFICULT TO AROUSE THIS MORNING. STAFF REPORTS THAT SHE CONTINUES WITH CONFUSION AND AGITATION AT TIMES. THEY ALSO REPORT THAT PATIENT REFUSES TO EAT. ON EXAMINATION, HEART IS REGULAR IN RATE AND RHYTHM. BILATERAL LUNGS CONTINUE WITH DIMINISHED LUNG SOUNDS THROUGHOUT. ABDOMEN IS ROUND, SOFT, AND NON-TENDER WITH NORMAL BOWEL SOUNDS NOTED IN ALL QUADRANTS. TRACE EDEMA NOTED TO BILATERAL LOWER EXTREMITIES. HER VITALS TODAY ARE 98.9-75-14-100%-171/81. LABS WERE OBTAINED. ABNORMAL LAB VALUES INCLUDE THE FOLLOWING: HGB 10.7, HCT 32.7, BUN 22, CREATININE 1.07, ALT 9, TOTAL PROTEIN 6.2, ALBUMIN 2.0, INR 4.55. SHE CONTINUES ON ANTIBIOTICS FOR GROWTH OF E.COLI IN URINE. PHYSICAL THERAPY HAS EVALUATED PATIENT AND RECOMMENDS THERAPY, HOWEVER, WHEN ATTEMPTING TO WORK WITH PATIENT, SHE BECOMES AGITATED AND IS UNABLE TO COOPERATE WITH THERAPY. WE WILL CONTINUE TO HOLD COUMADIN DUE TO ELEVATED INR. TODAY, WE WILL CONTINUE WITH CURRENT PLAN OF CARE. OTHERWISE, WE WILL FOLLOW UP WITH AM LABS AND CONTINUE TO MONITOR PATIENT. - Past Medical Family Social History Past Med/Fam/Surg Hx: No changes since H&P Allergies: Allergies codeine Allergy (Verified 03/29/18 14:17) penicillin G Allergy (Verified 03/29/18 14:17) - Review of Systems ROS: No change since H&P - Vital Signs and I&O's Vital Signs: Temperature 98.7 F Pulse Rate [Apical] 79 Respiratory Rate 16 Blood Pressure [Left Arm] 192/90 O2 Sat by Pulse Oximetry 99 Intake and Output: Intake & Output 04/04/18 04/05/18 04/06/18 04/07/18 11:59 11:59 11:59 11:59 Intake Total 2035 / 2035 2413 / 2413 1781 / 1781 2223 / 2223 Output Total 2099 / 2099 1150 / 1150 1050 / 1050 1250 / 1250 Balance -64 / -64 1263 / 1263 731 / 731 973 / 973 - Physical Exam Oriented: Person, Place Eyes: Normal Ear: Normal Nose: Normal Throat: Normal Respiratory: Normal Cardiovascular: Normal : Normal Auscultation: Bowel Sounds: Normal Palpation: Normal Tenderness: Normal Skin: Normal Musculoskeletal: Right, Left, Leg, Tender Psychiatric: Normal Mood Description: Calm Affect: Normal Speech Pattern: Clear - Laboratory and Diagnostics Result Diagrams: 04/07/18 04:54 04/07/18 04:54 Labs: 03/29/18 15:22 Urine,Catheterized Urine Culture - Final Escherichia Coli Laboratory WBC 9.3 X10^3/uL (3.6-10.0) 04/07/18 04:54 RBC 4.37 X10^6/uL (3.5-5.4) 04/07/18 04:54 Hgb 10.1 g/dL (12.0-16.0) L 04/07/18 04:54 Hct 30.6 % (36.0-47.0) L 04/07/18 04:54 MCV 69.9 fL (80.0-100.0) L 04/07/18 04:54 MCH 23.0 pg (27.0-34.0) L 04/07/18 04:54 MCHC 32.9 g/dL (33.0-35.0) L 04/07/18 04:54 RDW 14.6 % (11.6-16.5) 04/07/18 04:54 Plt Count 267 X10^3/uL (150.0-450.0) 04/07/18 04:54 Plt Count Comment Adequate (ADEQUATE) 04/07/18 04:54 MPV 7.8 fL (7.4-11.0) 04/07/18 04:54 Neut % (Auto) 80.4 % (42.0-75.0) H 04/07/18 04:54 Lymph % (Auto) 9.7 % (21.0-51.0) L 04/07/18 04:54 [place] % (Auto) 9.6 % (0.0-13.0) 04/07/18 04:54 Eos % (Auto) 0.0 % (0.9-2.9) L 04/07/18 04:54 Baso % (Auto) 0.3 % (0.2-1.0) 04/07/18 04:54 Neut # (Auto) 7.5 x10^3/uL (2.2-4.8) H 04/07/18 04:54 Lymph # (Auto) 0.9 X10^3/uL (1.3-2.9) L 04/07/18 04:54 [place] # (Auto) 0.9 x10^3/uL (0.3-0.8) H 04/07/18 04:54 Eos # (Auto) 0.0 x10^3/uL (0.0-0.2) 04/07/18 04:54 Baso # (Auto) 0.0 X10^3/uL (0.0-0.1) 04/07/18 04:54 Absolute Nucleated RBC 0.0 /100WBC 04/07/18 04:54 Total Counted 100 04/06/18 05:56 Neutrophils % (Manual) 95 % (39-76) H 04/06/18 05:56 Band Neutrophils % 1 % (0-10) 04/06/18 05:56 Lymphocytes % (Manual) 2 % (13-43) L 04/06/18 05:56 Monocytes % (Manual) 2 % (4-9) L 04/06/18 05:56 Plt Morphology Comment Normal (NORMAL) 04/07/18 04:54 RBC Morphology Abnormal (NORMAL) A 04/07/18 04:54 Hypochromasia 1+ A 04/07/18 04:54 Poikilocytosis Slight A 04/05/18 04:36 Anisocytosis Slight A 04/04/18 04:25 Microcytosis 1+ A 04/07/18 04:54 Target Cells Slight A 03/30/18 04:08 Ovalocytes Slight A 04/05/18 04:36 [place] Cells 1+ A 04/06/18 05:56 Crenated Cell Slight A 04/05/18 04:36 Acanthocytes (Spur) Slight 04/05/18 04:36 INR Target Range - 04/07/18 04:54 INR 5.27 (0.8-1.3) H* 04/07/18 04:54 APTT 90.7 SECONDS (22.9-36.5) H 04/03/18 09:52 PTT Comment - 04/03/18 09:52 Sodium 140 mmol/L (136-145) 04/07/18 04:54 Corrected Sodium TNP 04/07/18 04:54 Potassium 4.6 mmol/L (3.5-5.1) 04/07/18 04:54 Chloride 108 mmol/L (98-107) H 04/07/18 04:54 Carbon Dioxide 28.0 mmol/L (21-32) 04/07/18 04:54 BUN 30 mg/dL (7-18) H 04/07/18 04:54 Creatinine 0.93 mg/dL (0.55-1.02) 04/07/18 04:54 Est GFR (MDRD) Af Amer > 60 (>60) 04/07/18 04:54 Est GFR (MDRD) Non-Af > 60 (>60) 04/07/18 04:54 Glucose 110 mg/dL (65-99) H 04/07/18 04:54 Calcium 9.5 mg/dL (8.5-10.1) 04/07/18 04:54 Corrected Calcium 11.3 mg/dL (8.5-10.1) H 04/07/18 04:54 Total Bilirubin 0.30 mg/dL (0.2-1.0) 04/07/18 04:54 AST 136 Units/L (15-37) H 04/07/18 04:54 ALT 71 Units/L (12-78) 04/07/18 04:54 Alkaline Phosphatase 48 Units/L (46-116) 04/07/18 04:54 Total Protein 6.1 g/dL (6.4-8.2) L 04/07/18 04:54 Albumin 1.7 g/dL (3.4-5.0) L 04/07/18 04:54 Globulin 4.4 g/dL (2.5-4.5) 04/07/18 04:54 Albumin/Globulin Ratio 0.4 Ratio (1.1-2.1) L 04/07/18 04:54 Specimen Type Catherized urine 03/29/18 15:22 Urine Color Yellow (YELLOW) 03/29/18 15:22 Urine Appearance Cloudy (CLEAR) 03/29/18 15:22 Urine pH 6.5 (5.0 - 8.0) 03/29/18 15:22 Ur Specific [place] 1.015 (1.000-1.030) 03/29/18 15:22 Urine Protein 2+ (NEGATIVE) 03/29/18 15:22 Urine Glucose (UA) Negative (NEGATIVE) 03/29/18 15:22 Urine Ketones Negative (NEGATIVE) 03/29/18 15:22 Urine Occult Blood 4+ (NEGATIVE) 03/29/18 15:22 Urine Nitrite Negative (NEGATIVE) 03/29/18 15:22 Urine Bilirubin Negative (NEGATIVE) 03/29/18 15:22 Urine Urobilinogen 1+ (NORMAL) 03/29/18 15:22 Ur Leukocyte Esterase 1+ (NEGATIVE) 03/29/18 15:22 Urine RBC 3-5 /HPF (NONE SEEN) 03/29/18 15:22 Urine WBC 3-5 /HPF (NONE SEEN) 03/29/18 15:22 Ur Squamous Epith Cells Few /HPF (NEGATIVE) 03/29/18 15:22 Amorphous Sediment Trace /HPF (NEGATIVE) 03/29/18 15:22 Urine Bacteria 3+ /HPF (NEGATIVE) 03/29/18 15:22 Urine Yeast Few /HPF (NEGATIVE) 03/29/18 15:22 Ur Culture Indicated? Yes/culture set up 03/29/18 15:22 - Plan (1) DVT (deep venous thrombosis) Status: Acute Qualifiers: DVT location: lower extremity Affected thrombotic vein of extremity: unspecified vein of extremity Chronicity: acute Laterality: left Qualified Code(s): I82.402 - Acute embolism and thrombosis of unspecified deep veins of left lower extremity Plan: HOLD COUMADIN DUE TO ELEVATED INR, CONTINUE TO MONITOR (2) UTI (urinary tract infection) Status: Acute Qualifiers: Urinary tract infection type: acute cystitis Hematuria presence: without hematuria Qualified Code(s): N30.00 - Acute cystitis without hematuria Plan: CIPRO 200MG IV BID, CONTINUE TO MONITOR (3) Agitation Status: Acute Plan: CONTINUE HOME MEDICATIONS, CONTINUE TO MONITOR (4) Dementia Status: Chronic Qualifiers: Dementia type: vascular dementia Dementia behavioral disturbance: without behavioral disturbance Qualified Code(s): F01.50 - Vascular dementia without behavioral disturbance Plan: OBTAIN BRAIN CT TODAY DUE TO INCREASED CONFUSION AND WEAKNESS (5) Hypertension Status: Chronic Qualifiers: Hypertension type: essential hypertension Qualified Code(s): I10 - Essential (primary) hypertension Plan: RESUME HOME MEDICATIONS
[2018-04-07] MEDS ORDERED: AQUA-MEPHYTON ADULT INJ SC NR (12:00)
--- NOTE | 2018-04-07 12:13 | PCM.PROG ---
Progress Note - Progress Note for Day of Date of Exam: 04/06/18 - Subjective Subjective: WAS ADMITTED FOR A LEFT LOWER EXTREMITY DVT. TODAY, SHE IS LYING IN BED WITH EYES CLOSED ON MORNING ROUNDS. SHE CONTINUES TO BE DIFFICULT TO AROUSE THIS MORNING. STAFF REPORTS THAT SHE CONTINUES WITH CONFUSION AND AGITATION AT TIMES. SHE ALSO CONTINUES WITH WEAKNESS. SHE BECOMES VERY AGITATED WHEN STAFF OR PHYSICAL THERAPY ATTEMPT TO GET PATIENT OUT OF BED. ON EXAMINATION , HEART IS REGULAR IN RATE AND RHYTHM. BILATERAL LUNGS CONTINUE WITH DIMINISHED LUNG SOUNDS THROUGHOUT. ABDOMEN IS ROUND, SOFT, AND NON-TENDER WITH NORMAL BOWEL SOUNDS NOTED IN ALL QUADRANTS. TRACE EDEMA CONTINUES TO BILATERAL LOWER EXTREMITIES. HER VITALS TODAY ARE 98.0-72-20-97%-141/65. LABS WERE OBTAINED. ABNORMAL LAB VALUES INCLUDE THE FOLLOWING: HGB 11.5, HCT 35.1, INR 4.40, BUN 23 , GLUCOSE 108, AST 75, ALBUMIN 2.1, GLOBULIN 4.9. SHE CONTINUES ON ANTIBIOTICS FOR GROWTH OF E.COLI IN URINE. WE WILL CONTINUE TO HOLD COUMADIN DUE TO ELEVATED INR. TODAY, WE WILL CONTINUE WITH CURRENT PLAN OF CARE. OTHERWISE, WE WILL FOLLOW UP WITH AM LABS AND CONTINUE TO MONITOR PATIENT. - Past Medical Family Social History Past Med/Fam/Surg Hx: No changes since H&P Allergies: Allergies codeine Allergy (Verified 03/29/18 14:17) penicillin G Allergy (Verified 03/29/18 14:17) - Review of Systems ROS: No change since H&P - Vital Signs and I&O's Vital Signs: Temperature 98.7 F Pulse Rate [Apical] 79 Respiratory Rate 16 Blood Pressure [Left Arm] 192/90 O2 Sat by Pulse Oximetry 99 Intake and Output: Intake & Output 04/05/18 04/06/18 04/07/18 04/08/18 11:59 11:59 11:59 11:59 Intake Total 2413 / 2413 1781 / 1781 2223 / 2223 Output Total 1150 / 1150 1050 / 1050 1250 / 1250 Balance 1263 / 1263 731 / 731 973 / 973 - Physical Exam Oriented: Unable to test Eyes: Normal Ear: Normal Nose: Normal Throat: Normal Respiratory: Normal Cardiovascular: Normal : Normal Auscultation: Bowel Sounds: Normal Palpation: Normal Tenderness: Normal, Epigastric Skin: Normal Musculoskeletal: Right, Left, Leg, Tender Psychiatric: Normal Mood Description: Calm Affect: Normal Speech Pattern: Clear - Laboratory and Diagnostics Result Diagrams: 04/07/18 04:54 04/07/18 04:54 Labs: 03/29/18 15:22 Urine,Catheterized Urine Culture - Final Escherichia Coli Laboratory WBC 9.3 X10^3/uL (3.6-10.0) 04/07/18 04:54 RBC 4.37 X10^6/uL (3.5-5.4) 04/07/18 04:54 Hgb 10.1 g/dL (12.0-16.0) L 04/07/18 04:54 Hct 30.6 % (36.0-47.0) L 04/07/18 04:54 MCV 69.9 fL (80.0-100.0) L 04/07/18 04:54 MCH 23.0 pg (27.0-34.0) L 04/07/18 04:54 MCHC 32.9 g/dL (33.0-35.0) L 04/07/18 04:54 RDW 14.6 % (11.6-16.5) 04/07/18 04:54 Plt Count 267 X10^3/uL (150.0-450.0) 04/07/18 04:54 Plt Count Comment Adequate (ADEQUATE) 04/07/18 04:54 MPV 7.8 fL (7.4-11.0) 04/07/18 04:54 Neut % (Auto) 80.4 % (42.0-75.0) H 04/07/18 04:54 Lymph % (Auto) 9.7 % (21.0-51.0) L 04/07/18 04:54 [place] % (Auto) 9.6 % (0.0-13.0) 04/07/18 04:54 Eos % (Auto) 0.0 % (0.9-2.9) L 04/07/18 04:54 Baso % (Auto) 0.3 % (0.2-1.0) 04/07/18 04:54 Neut # (Auto) 7.5 x10^3/uL (2.2-4.8) H 04/07/18 04:54 Lymph # (Auto) 0.9 X10^3/uL (1.3-2.9) L 04/07/18 04:54 [place] # (Auto) 0.9 x10^3/uL (0.3-0.8) H 04/07/18 04:54 Eos # (Auto) 0.0 x10^3/uL (0.0-0.2) 04/07/18 04:54 Baso # (Auto) 0.0 X10^3/uL (0.0-0.1) 04/07/18 04:54 Absolute Nucleated RBC 0.0 /100WBC 04/07/18 04:54 Total Counted 100 04/06/18 05:56 Neutrophils % (Manual) 95 % (39-76) H 04/06/18 05:56 Band Neutrophils % 1 % (0-10) 04/06/18 05:56 Lymphocytes % (Manual) 2 % (13-43) L 04/06/18 05:56 Monocytes % (Manual) 2 % (4-9) L 04/06/18 05:56 Plt Morphology Comment Normal (NORMAL) 04/07/18 04:54 RBC Morphology Abnormal (NORMAL) A 04/07/18 04:54 Hypochromasia 1+ A 04/07/18 04:54 Poikilocytosis Slight A 04/05/18 04:36 Anisocytosis Slight A 04/04/18 04:25 Microcytosis 1+ A 04/07/18 04:54 Target Cells Slight A 03/30/18 04:08 Ovalocytes Slight A 04/05/18 04:36 [place] Cells 1+ A 04/06/18 05:56 Crenated Cell Slight A 04/05/18 04:36 Acanthocytes (Spur) Slight 04/05/18 04:36 INR Target Range - 04/07/18 04:54 INR 5.27 (0.8-1.3) H* 04/07/18 04:54 APTT 90.7 SECONDS (22.9-36.5) H 04/03/18 09:52 PTT Comment - 04/03/18 09:52 Sodium 140 mmol/L (136-145) 04/07/18 04:54 Corrected Sodium TNP 04/07/18 04:54 Potassium 4.6 mmol/L (3.5-5.1) 04/07/18 04:54 Chloride 108 mmol/L (98-107) H 04/07/18 04:54 Carbon Dioxide 28.0 mmol/L (21-32) 04/07/18 04:54 BUN 30 mg/dL (7-18) H 04/07/18 04:54 Creatinine 0.93 mg/dL (0.55-1.02) 04/07/18 04:54 Est GFR (MDRD) Af Amer > 60 (>60) 04/07/18 04:54 Est GFR (MDRD) Non-Af > 60 (>60) 04/07/18 04:54 Glucose 110 mg/dL (65-99) H 04/07/18 04:54 Calcium 9.5 mg/dL (8.5-10.1) 04/07/18 04:54 Corrected Calcium 11.3 mg/dL (8.5-10.1) H 04/07/18 04:54 Total Bilirubin 0.30 mg/dL (0.2-1.0) 04/07/18 04:54 AST 136 Units/L (15-37) H 04/07/18 04:54 ALT 71 Units/L (12-78) 04/07/18 04:54 Alkaline Phosphatase 48 Units/L (46-116) 04/07/18 04:54 Total Protein 6.1 g/dL (6.4-8.2) L 04/07/18 04:54 Albumin 1.7 g/dL (3.4-5.0) L 04/07/18 04:54 Globulin 4.4 g/dL (2.5-4.5) 04/07/18 04:54 Albumin/Globulin Ratio 0.4 Ratio (1.1-2.1) L 04/07/18 04:54 Specimen Type Catherized urine 03/29/18 15:22 Urine Color Yellow (YELLOW) 03/29/18 15:22 Urine Appearance Cloudy (CLEAR) 03/29/18 15:22 Urine pH 6.5 (5.0 - 8.0) 03/29/18 15:22 Ur Specific [place] 1.015 (1.000-1.030) 03/29/18 15:22 Urine Protein 2+ (NEGATIVE) 03/29/18 15:22 Urine Glucose (UA) Negative (NEGATIVE) 03/29/18 15:22 Urine Ketones Negative (NEGATIVE) 03/29/18 15:22 Urine Occult Blood 4+ (NEGATIVE) 03/29/18 15:22 Urine Nitrite Negative (NEGATIVE) 03/29/18 15:22 Urine Bilirubin Negative (NEGATIVE) 03/29/18 15:22 Urine Urobilinogen 1+ (NORMAL) 03/29/18 15:22 Ur Leukocyte Esterase 1+ (NEGATIVE) 03/29/18 15:22 Urine RBC 3-5 /HPF (NONE SEEN) 03/29/18 15:22 Urine WBC 3-5 /HPF (NONE SEEN) 03/29/18 15:22 Ur Squamous Epith Cells Few /HPF (NEGATIVE) 03/29/18 15:22 Amorphous Sediment Trace /HPF (NEGATIVE) 03/29/18 15:22 Urine Bacteria 3+ /HPF (NEGATIVE) 03/29/18 15:22 Urine Yeast Few /HPF (NEGATIVE) 03/29/18 15:22 Ur Culture Indicated? Yes/culture set up 03/29/18 15:22 - Plan (1) DVT (deep venous thrombosis) Status: Acute Qualifiers: DVT location: lower extremity Affected thrombotic vein of extremity: unspecified vein of extremity Chronicity: acute Laterality: left Qualified Code(s): I82.402 - Acute embolism and thrombosis of unspecified deep veins of left lower extremity Plan: HOLD COUMADIN DUE TO ELEVATED INR, CONTINUE TO MONITOR (2) UTI (urinary tract infection) Status: Acute Qualifiers: Urinary tract infection type: acute cystitis Hematuria presence: without hematuria Qualified Code(s): N30.00 - Acute cystitis without hematuria Plan: CIPRO 200MG IV BID, CONTINUE TO MONITOR (3) Agitation Status: Acute Plan: CONTINUE HOME MEDICATIONS, CONTINUE TO MONITOR (4) Dementia Status: Chronic Qualifiers: Dementia type: vascular dementia Dementia behavioral disturbance: without behavioral disturbance Qualified Code(s): F01.50 - Vascular dementia without behavioral disturbance Plan: OBTAIN BRAIN CT TODAY DUE TO INCREASED CONFUSION AND WEAKNESS (5) Hypertension Status: Chronic Qualifiers: Hypertension type: essential hypertension Qualified Code(s): I10 - Essential (primary) hypertension Plan: RESUME HOME MEDICATIONS
[2018-04-07] MEDS ORDERED: NORMODYNE INJ 100 MG VIAL ONE (12:44)
[2018-04-07] MEDS: COLACE CAP 100 MG PO SCH (20:20)
--- NOTE | 2018-04-07 21:38 | PCM.PROG ---
Progress Note - Progress Note for Day of Date of Exam: 04/07/18 - Subjective Subjective: IS LYING IN BED WITH EYES CLOSED ON MORNING ROUNDS. SHE AWAKENS TO VERBAL STIMULI, BUT IS DISORIENTED AND IMMEDIATELY BECOMES AGITATED. STAFF REPORTS THAT SHE CONTINUES WITH WEAKNESS AND REFUSING TO EAT. ON EXAMINATION, HEART IS REGULAR IN RATE AND RHYTHM. BILATERAL LUNGS CONTINUE WITH DIMINISHED LUNG SOUNDS THROUGHOUT. ABDOMEN IS ROUND, SOFT, AND NON-TENDER WITH NORMAL BOWEL SOUNDS NOTED IN ALL QUADRANTS. TRACE EDEMA CONTINUES TO BILATERAL LOWER EXTREMITIES. HER VITALS TODAY ARE 98.7-75-12-98%-172/77. LABS WERE OBTAINED. ABNORMAL LAB VALUES INCLUDE THE FOLLOWING: HGB 10.1, HCT 30.6, INR 5.27, CHLORIDE 108, BUN 30, GLUCOSE 110, AST 136, TOTAL PROTEIN 6.1, ALBUMIN 1.7. SHE CONTINUES ON ANTIBIOTICS FOR GROWTH OF E.COLI IN URINE. WE WILL CONTINUE TO HOLD COUMADIN DUE TO ELEVATED INR. TODAY, WE WILL CONTINUE WITH CURRENT PLAN OF CARE AND ADMINISTER VITAMIN K 5MG SUBCUTANEOUSLY X 1 DOSE. OTHERWISE, WE WILL FOLLOW UP WITH AM LABS AND CONTINUE TO MONITOR PATIENT. - Past Medical Family Social History Past Med/Fam/Surg Hx: No changes since H&P Allergies: Allergies codeine Allergy (Verified 03/29/18 14:17) penicillin G Allergy (Verified 03/29/18 14:17) - Review of Systems ROS: No change since H&P - Vital Signs and I&O's Vital Signs: Temperature 98.9 F Pulse Rate [Apical] 95 Respiratory Rate 16 Blood Pressure [Left Arm] 194/97 O2 Sat by Pulse Oximetry 97 Intake and Output: Intake & Output 04/05/18 04/06/18 04/07/18 04/08/18 11:59 11:59 11:59 11:59 Intake Total 2413 / 2413 1781 / 1781 2223 / 2223 650 / 650 Output Total 1150 / 1150 1050 / 1050 1250 / 1250 550 / 550 Balance 1263 / 1263 731 / 731 973 / 973 100 / 100 - Physical Exam Oriented: Unable to test Eyes: Normal Ear: Normal Nose: Normal Throat: Normal Respiratory: Normal Cardiovascular: Normal : Normal Auscultation: Bowel Sounds: Normal Palpation: Normal Tenderness: Normal, Epigastric Skin: Normal Musculoskeletal: Right, Left, Leg, Tender Psychiatric: Normal Mood Description: Calm Affect: Normal Speech Pattern: Clear - Laboratory and Diagnostics Result Diagrams: 04/07/18 04:54 04/07/18 04:54 Labs: 03/29/18 15:22 Urine,Catheterized Urine Culture - Final Escherichia Coli Laboratory WBC 9.3 X10^3/uL (3.6-10.0) 04/07/18 04:54 RBC 4.37 X10^6/uL (3.5-5.4) 04/07/18 04:54 Hgb 10.1 g/dL (12.0-16.0) L 04/07/18 04:54 Hct 30.6 % (36.0-47.0) L 04/07/18 04:54 MCV 69.9 fL (80.0-100.0) L 04/07/18 04:54 MCH 23.0 pg (27.0-34.0) L 04/07/18 04:54 MCHC 32.9 g/dL (33.0-35.0) L 04/07/18 04:54 RDW 14.6 % (11.6-16.5) 04/07/18 04:54 Plt Count 267 X10^3/uL (150.0-450.0) 04/07/18 04:54 Plt Count Comment Adequate (ADEQUATE) 04/07/18 04:54 MPV 7.8 fL (7.4-11.0) 04/07/18 04:54 Neut % (Auto) 80.4 % (42.0-75.0) H 04/07/18 04:54 Lymph % (Auto) 9.7 % (21.0-51.0) L 04/07/18 04:54 [place] % (Auto) 9.6 % (0.0-13.0) 04/07/18 04:54 Eos % (Auto) 0.0 % (0.9-2.9) L 04/07/18 04:54 Baso % (Auto) 0.3 % (0.2-1.0) 04/07/18 04:54 Neut # (Auto) 7.5 x10^3/uL (2.2-4.8) H 04/07/18 04:54 Lymph # (Auto) 0.9 X10^3/uL (1.3-2.9) L 04/07/18 04:54 [place] # (Auto) 0.9 x10^3/uL (0.3-0.8) H 04/07/18 04:54 Eos # (Auto) 0.0 x10^3/uL (0.0-0.2) 04/07/18 04:54 Baso # (Auto) 0.0 X10^3/uL (0.0-0.1) 04/07/18 04:54 Absolute Nucleated RBC 0.0 /100WBC 04/07/18 04:54 Total Counted 100 04/06/18 05:56 Neutrophils % (Manual) 95 % (39-76) H 04/06/18 05:56 Band Neutrophils % 1 % (0-10) 04/06/18 05:56 Lymphocytes % (Manual) 2 % (13-43) L 04/06/18 05:56 Monocytes % (Manual) 2 % (4-9) L 04/06/18 05:56 Plt Morphology Comment Normal (NORMAL) 04/07/18 04:54 RBC Morphology Abnormal (NORMAL) A 04/07/18 04:54 Hypochromasia 1+ A 04/07/18 04:54 Poikilocytosis Slight A 04/05/18 04:36 Anisocytosis Slight A 04/04/18 04:25 Microcytosis 1+ A 04/07/18 04:54 Target Cells Slight A 03/30/18 04:08 Ovalocytes Slight A 04/05/18 04:36 [place] Cells 1+ A 04/06/18 05:56 Crenated Cell Slight A 04/05/18 04:36 Acanthocytes (Spur) Slight 04/05/18 04:36 INR Target Range - 04/07/18 04:54 INR 5.27 (0.8-1.3) H* 04/07/18 04:54 APTT 90.7 SECONDS (22.9-36.5) H 04/03/18 09:52 PTT Comment - 04/03/18 09:52 Sodium 140 mmol/L (136-145) 04/07/18 04:54 Corrected Sodium TNP 04/07/18 04:54 Potassium 4.6 mmol/L (3.5-5.1) 04/07/18 04:54 Chloride 108 mmol/L (98-107) H 04/07/18 04:54 Carbon Dioxide 28.0 mmol/L (21-32) 04/07/18 04:54 BUN 30 mg/dL (7-18) H 04/07/18 04:54 Creatinine 0.93 mg/dL (0.55-1.02) 04/07/18 04:54 Est GFR (MDRD) Af Amer > 60 (>60) 04/07/18 04:54 Est GFR (MDRD) Non-Af > 60 (>60) 04/07/18 04:54 Glucose 110 mg/dL (65-99) H 04/07/18 04:54 Calcium 9.5 mg/dL (8.5-10.1) 04/07/18 04:54 Corrected Calcium 11.3 mg/dL (8.5-10.1) H 04/07/18 04:54 Total Bilirubin 0.30 mg/dL (0.2-1.0) 04/07/18 04:54 AST 136 Units/L (15-37) H 04/07/18 04:54 ALT 71 Units/L (12-78) 04/07/18 04:54 Alkaline Phosphatase 48 Units/L (46-116) 04/07/18 04:54 Total Protein 6.1 g/dL (6.4-8.2) L 04/07/18 04:54 Albumin 1.7 g/dL (3.4-5.0) L 04/07/18 04:54 Globulin 4.4 g/dL (2.5-4.5) 04/07/18 04:54 Albumin/Globulin Ratio 0.4 Ratio (1.1-2.1) L 04/07/18 04:54 Specimen Type Catherized urine 03/29/18 15:22 Urine Color Yellow (YELLOW) 03/29/18 15:22 Urine Appearance Cloudy (CLEAR) 03/29/18 15:22 Urine pH 6.5 (5.0 - 8.0) 03/29/18 15:22 Ur Specific [place] 1.015 (1.000-1.030) 03/29/18 15:22 Urine Protein 2+ (NEGATIVE) 03/29/18 15:22 Urine Glucose (UA) Negative (NEGATIVE) 03/29/18 15:22 Urine Ketones Negative (NEGATIVE) 03/29/18 15:22 Urine Occult Blood 4+ (NEGATIVE) 03/29/18 15:22 Urine Nitrite Negative (NEGATIVE) 03/29/18 15:22 Urine Bilirubin Negative (NEGATIVE) 03/29/18 15:22 Urine Urobilinogen 1+ (NORMAL) 03/29/18 15:22 Ur Leukocyte Esterase 1+ (NEGATIVE) 03/29/18 15:22 Urine RBC 3-5 /HPF (NONE SEEN) 03/29/18 15:22 Urine WBC 3-5 /HPF (NONE SEEN) 03/29/18 15:22 Ur Squamous Epith Cells Few /HPF (NEGATIVE) 03/29/18 15:22 Amorphous Sediment Trace /HPF (NEGATIVE) 03/29/18 15:22 Urine Bacteria 3+ /HPF (NEGATIVE) 03/29/18 15:22 Urine Yeast Few /HPF (NEGATIVE) 03/29/18 15:22 Ur Culture Indicated? Yes/culture set up 03/29/18 15:22 - Plan (1) DVT (deep venous thrombosis) Status: Acute Qualifiers: DVT location: lower extremity Affected thrombotic vein of extremity: unspecified vein of extremity Chronicity: acute Laterality: left Qualified Code(s): I82.402 - Acute embolism and thrombosis of unspecified deep veins of left lower extremity Plan: HOLD COUMADIN DUE TO ELEVATED INR, CONTINUE TO MONITOR (2) UTI (urinary tract infection) Status: Acute Qualifiers: Urinary tract infection type: acute cystitis Hematuria presence: without hematuria Qualified Code(s): N30.00 - Acute cystitis without hematuria Plan: CIPRO 200MG IV BID, CONTINUE TO MONITOR (3) Agitation Status: Acute Plan: CONTINUE HOME MEDICATIONS, CONTINUE TO MONITOR (4) Dementia Status: Chronic Qualifiers: Dementia type: vascular dementia Dementia behavioral disturbance: without behavioral disturbance Qualified Code(s): F01.50 - Vascular dementia without behavioral disturbance Plan: OBTAIN BRAIN CT TODAY DUE TO INCREASED CONFUSION AND WEAKNESS (5) Hypertension Status: Chronic Qualifiers: Hypertension type: essential hypertension Qualified Code(s): I10 - Essential (primary) hypertension Plan: RESUME HOME MEDICATIONS (6) Elevated INR Status: Acute Plan: HOLD COUMADIN, ADMINISTER VITAMIN K 5MG SUBCUTANEOUSLY X 1 DOSE, CONTINUE TO MONITOR
[2018-04-08 05:41] LABS: BASOPHILS % (AUTO) 0.5 % (0.2-1.0); EOSINOPHILS % (AUTO) 0.7 % (0.9-2.9); HEMATOCRIT 32.6 % (36.0-47.0); HEMOGLOBIN 10.6 g/dL (12.0-16.0); LYMPHOCYTES # (AUTO) 1.6 X10^3/uL (1.3-2.9); LYMPHOCYTES % (AUTO) 26.6 % (21.0-51.0); MEAN CORPUSCULAR HEMOGLOBIN 22.9 pg (27.0-34.0); MEAN CORPUSCULAR HGB CONC 32.4 g/dL (33.0-35.0); MEAN CORPUSCULAR VOLUME 70.6 fL (80.0-100.0); MEAN PLATELET VOLUME 7.5 fL (7.4-11.0); MONOCYTES # (AUTO) 0.7 x10^3/uL (0.3-0.8); MONOCYTES % (AUTO) 12.1 % (0.0-13.0); NEUTROPHILS # (AUTO) 3.5 x10^3/uL (2.2-4.8); NEUTROPHILS % (AUTO) 60.1 % (42.0-75.0); PLATELET COUNT 285 X10^3/uL (150.0-450.0); RED BLOOD COUNT 4.62 X10^6/uL (3.5-5.4); RED CELL DISTRIBUTION WIDTH 14.7 % (11.6-16.5); WHITE BLOOD COUNT 5.9 X10^3/uL (3.6-10.0)
[2018-04-08 06:04] LABS: ALANINE AMINOTRANSFERASE 59 Units/L (12-78); ALBUMIN 1.9 g/dL (3.4-5.0); ALKALINE PHOSPHATASE 50 Units/L (46-116); ASPARTATE AMINO TRANSFERASE 92 Units/L (15-37); CALCIUM 10.1 mg/dL (8.5-10.1); CHLORIDE 108 mmol/L (98-107); COR CA(FOR HYPOALB) 11.8 mg/dL (8.5-10.1); CREATININE 0.95 mg/dL (0.55-1.02); SODIUM 141 mmol/L (136-145); TOTAL PROTEIN 6.4 g/dL (6.4-8.2); eGFR NON BLACK RACES 60 (>60)
[2018-04-08 06:17] LABS: BLOOD UREA NITROGEN 26 mg/dL (7-18)
[2018-04-08] MEDS: MEGACE ORAL SUSP 400 MG/10 ML PO SCH ×2 (06:23→17:16)
[2018-04-08] MEDS: ULTRAM PO SCH ×4 (06:24→21:42)
[2018-04-08] MEDS: SINEMET (PLAIN) 25/250 MG PO SCH ×4 (06:24→21:42)
[2018-04-08 06:44] LABS: HYPOCHROMASIA 1+; PLATELET MORPHOLOGY COMMENT NORMAL (NORMAL)
[2018-04-08] MEDS: ALBUMIN HUMAN 25%- 100 ML 100 ML IV SCH (08:37)
[2018-04-08] MEDS: ISOSORBIDE MONONITRATE ER PO SCH (08:40)
[2018-04-08] MEDS: ALDACTONE TAB 25 MG PO SCH (08:40)
[2018-04-08] MEDS: COZAAR PO SCH (08:40)
[2018-04-08] MEDS: LOPRESSOR TAB 25 MG PO SCH (08:41)
[2018-04-08] MEDS: ROCEPHIN 1 GRAM IV PREMIX 1 G/50 ML IV.SOLN. IV SCH (08:41)
[2018-04-08] MEDS: NORMODYNE INJ 100 MG VIAL IVP PRN ×4 (11:28→21:14)
[2018-04-08] MEDS: NS 1000 ML 1,000 ML IV SCH ×3 (11:29→21:42)
--- NOTE | 2018-04-08 16:53 | PCM.PROG ---
Progress Note - Progress Note for Day of Date of Exam: 04/08/18 - Subjective Subjective: IS ALERT IN BED ON MORNING ROUNDS. SHE IS TALKING WITH HER GRANDDAUGHTER AT BEDSIDE. FAMILY MEMBER STATES THAT SHE CONTINUES WITH A DECREASED APPETITIE. STAFF REPORTS THAT SHE CONTINUES WITH WEAKNESS AND REQUIRES MODERATE ASSISTANCE FOR ADLS. ON EXAMINATION, HEART IS REGULAR IN RATE AND RHYTHM. BILATERAL LUNGS CONTINUE WITH DIMINISHED LUNG SOUNDS THROUGHOUT. ABDOMEN IS ROUND, SOFT, AND NON-TENDER WITH NORMAL BOWEL SOUNDS NOTED IN ALL QUADRANTS. HER VITALS TODAY ARE 98.7-77-21-100%-154/59. LABS WERE OBTAINED. ABNORMAL LAB VALUES INCLUDE THE FOLLOWING: HGB 10.6, HCT 32.6, INR 2.26, CHLORIDE 108, BUN 26, AST 92, ALBUMIN 1.9. SHE CONTINUES ON ANTIBIOTICS FOR GROWTH OF E.COLI IN URINE. WE WILL CONTINUE TO HOLD COUMADIN DUE TO ELEVATED INR. TODAY, WE WILL CONTINUE WITH CURRENT PLAN OF CARE. FAMILY REPORTS THAT THEY ARE NO LONGER ABLE TO CARE FOR PATIENTS NEEDS AT HOME AND REQUEST [facility] PLACMENT. WE ARE IN AGREEMENT WITH PLAN. CASE MANAGEMENT WILL ARRANGE PLACEMENT. OTHERWISE, WE WILL FOLLOW UP WITH AM LABS AND CONTINUE TO MONITOR PATIENT. - Past Medical Family Social History Past Med/Fam/Surg Hx: No changes since H&P Allergies: Allergies codeine Allergy (Verified 03/29/18 14:17) penicillin G Allergy (Verified 03/29/18 14:17) - Review of Systems ROS: No change since H&P - Vital Signs and I&O's Vital Signs: Temperature 99.1 F Pulse Rate [Apical] 83 Respiratory Rate 14 Blood Pressure [Left Arm] 172/86 O2 Sat by Pulse Oximetry 100 Intake and Output: Intake & Output 04/06/18 04/07/18 04/08/18 04/09/18 11:59 11:59 11:59 11:59 Intake Total 1781 / 1781 2223 / 2223 2046 / 2046 1035 / 1035 Output Total 1050 / 1050 1250 / 1250 1150 / 1150 1100 / 1100 Balance 731 / 731 973 / 973 896 / 896 -65 / -65 - Physical Exam Oriented: Unable to test Eyes: Normal Ear: Normal Nose: Normal Throat: Normal Respiratory: Normal Cardiovascular: Normal : Normal Auscultation: Bowel Sounds: Normal Palpation: Normal Tenderness: Normal, Epigastric Skin: Normal Musculoskeletal: Normal Psychiatric: Normal Mood Description: Calm Affect: Normal Speech Pattern: Clear - Laboratory and Diagnostics Result Diagrams: 04/08/18 05:08 04/08/18 05:05 Labs: 03/29/18 15:22 Urine,Catheterized Urine Culture - Final Escherichia Coli Laboratory WBC 5.9 X10^3/uL (3.6-10.0) 04/08/18 05:08 RBC 4.62 X10^6/uL (3.5-5.4) 04/08/18 05:08 Hgb 10.6 g/dL (12.0-16.0) L 04/08/18 05:08 Hct 32.6 % (36.0-47.0) L 04/08/18 05:08 MCV 70.6 fL (80.0-100.0) L 04/08/18 05:08 MCH 22.9 pg (27.0-34.0) L 04/08/18 05:08 MCHC 32.4 g/dL (33.0-35.0) L 04/08/18 05:08 RDW 14.7 % (11.6-16.5) 04/08/18 05:08 Plt Count 285 X10^3/uL (150.0-450.0) 04/08/18 05:08 Plt Count Comment Adequate (ADEQUATE) 04/08/18 05:08 MPV 7.5 fL (7.4-11.0) 04/08/18 05:08 Neut % (Auto) 60.1 % (42.0-75.0) 04/08/18 05:08 Lymph % (Auto) 26.6 % (21.0-51.0) 04/08/18 05:08 [place] % (Auto) 12.1 % (0.0-13.0) 04/08/18 05:08 Eos % (Auto) 0.7 % (0.9-2.9) L 04/08/18 05:08 Baso % (Auto) 0.5 % (0.2-1.0) 04/08/18 05:08 Neut # (Auto) 3.5 x10^3/uL (2.2-4.8) 04/08/18 05:08 Lymph # (Auto) 1.6 X10^3/uL (1.3-2.9) 04/08/18 05:08 [place] # (Auto) 0.7 x10^3/uL (0.3-0.8) 04/08/18 05:08 Eos # (Auto) 0.0 x10^3/uL (0.0-0.2) 04/08/18 05:08 Baso # (Auto) 0.0 X10^3/uL (0.0-0.1) 04/08/18 05:08 Absolute Nucleated RBC 0.1 /100WBC 04/08/18 05:08 Total Counted 100 04/06/18 05:56 Neutrophils % (Manual) 95 % (39-76) H 04/06/18 05:56 Band Neutrophils % 1 % (0-10) 04/06/18 05:56 Lymphocytes % (Manual) 2 % (13-43) L 04/06/18 05:56 Monocytes % (Manual) 2 % (4-9) L 04/06/18 05:56 Plt Morphology Comment Normal (NORMAL) 04/08/18 05:08 RBC Morphology Abnormal (NORMAL) A 04/08/18 05:08 Hypochromasia 1+ A 04/08/18 05:08 Poikilocytosis Slight A 04/05/18 04:36 Anisocytosis Slight A 04/04/18 04:25 Microcytosis 1+ A 04/07/18 04:54 Target Cells Slight A 03/30/18 04:08 Ovalocytes Slight A 04/05/18 04:36 [place] Cells 1+ A 04/06/18 05:56 Crenated Cell Slight A 04/05/18 04:36 Acanthocytes (Spur) Slight 04/05/18 04:36 INR Target Range - 04/08/18 05:05 INR 2.26 (0.8-1.3) H 04/08/18 05:05 APTT 90.7 SECONDS (22.9-36.5) H 04/03/18 09:52 PTT Comment - 04/03/18 09:52 Sodium 141 mmol/L (136-145) 04/08/18 05:05 Corrected Sodium TNP 04/08/18 05:05 Potassium 4.4 mmol/L (3.5-5.1) 04/08/18 05:05 Chloride 108 mmol/L (98-107) H 04/08/18 05:05 Carbon Dioxide 28.0 mmol/L (21-32) 04/08/18 05:05 BUN 26 mg/dL (7-18) H 04/08/18 05:05 Creatinine 0.95 mg/dL (0.55-1.02) 04/08/18 05:05 Est GFR (MDRD) Af Amer > 60 (>60) 04/08/18 05:05 Est GFR (MDRD) Non-Af 60 (>60) 04/08/18 05:05 Glucose 93 mg/dL (65-99) 04/08/18 05:05 Calcium 10.1 mg/dL (8.5-10.1) 04/08/18 05:05 Corrected Calcium 11.8 mg/dL (8.5-10.1) H 04/08/18 05:05 Total Bilirubin 0.50 mg/dL (0.2-1.0) 04/08/18 05:05 AST 92 Units/L (15-37) H 04/08/18 05:05 ALT 59 Units/L (12-78) 04/08/18 05:05 Alkaline Phosphatase 50 Units/L (46-116) 04/08/18 05:05 Total Protein 6.4 g/dL (6.4-8.2) 04/08/18 05:05 Albumin 1.9 g/dL (3.4-5.0) L 04/08/18 05:05 Globulin 4.5 g/dL (2.5-4.5) 04/08/18 05:05 Albumin/Globulin Ratio 0.4 Ratio (1.1-2.1) L 04/08/18 05:05 Specimen Type Catherized urine 03/29/18 15:22 Urine Color Yellow (YELLOW) 03/29/18 15:22 Urine Appearance Cloudy (CLEAR) 03/29/18 15:22 Urine pH 6.5 (5.0 - 8.0) 03/29/18 15:22 Ur Specific [place] 1.015 (1.000-1.030) 03/29/18 15:22 Urine Protein 2+ (NEGATIVE) 03/29/18 15:22 Urine Glucose (UA) Negative (NEGATIVE) 03/29/18 15:22 Urine Ketones Negative (NEGATIVE) 03/29/18 15:22 Urine Occult Blood 4+ (NEGATIVE) 03/29/18 15:22 Urine Nitrite Negative (NEGATIVE) 03/29/18 15:22 Urine Bilirubin Negative (NEGATIVE) 03/29/18 15:22 Urine Urobilinogen 1+ (NORMAL) 03/29/18 15:22 Ur Leukocyte Esterase 1+ (NEGATIVE) 03/29/18 15:22 Urine RBC 3-5 /HPF (NONE SEEN) 03/29/18 15:22 Urine WBC 3-5 /HPF (NONE SEEN) 03/29/18 15:22 Ur Squamous Epith Cells Few /HPF (NEGATIVE) 03/29/18 15:22 Amorphous Sediment Trace /HPF (NEGATIVE) 03/29/18 15:22 Urine Bacteria 3+ /HPF (NEGATIVE) 03/29/18 15:22 Urine Yeast Few /HPF (NEGATIVE) 03/29/18 15:22 Ur Culture Indicated? Yes/culture set up 03/29/18 15:22 - Plan (1) DVT (deep venous thrombosis) Status: Acute Qualifiers: DVT location: lower extremity Affected thrombotic vein of extremity: unspecified vein of extremity Chronicity: acute Laterality: left Qualified Code(s): I82.402 - Acute embolism and thrombosis of unspecified deep veins of left lower extremity Plan: HOLD COUMADIN DUE TO ELEVATED INR, CONTINUE TO MONITOR (2) Failure to thrive Status: Acute Qualifiers: Failure to thrive age range: in adult Qualified Code(s): R62.7 - Adult failure to thrive Plan: TPN, ALBUMIN, CONTINUE TO MONITOR (3) UTI (urinary tract infection) Status: Acute Qualifiers: Urinary tract infection type: acute cystitis Hematuria presence: without hematuria Qualified Code(s): N30.00 - Acute cystitis without hematuria Plan: CIPRO 200MG IV BID, CONTINUE TO MONITOR (4) Agitation Status: Acute Plan: CONTINUE HOME MEDICATIONS, CONTINUE TO MONITOR (5) Dementia Status: Chronic Qualifiers: Dementia type: vascular dementia Dementia behavioral disturbance: without behavioral disturbance Qualified Code(s): F01.50 - Vascular dementia without behavioral disturbance Plan: OBTAIN BRAIN CT TODAY DUE TO INCREASED CONFUSION AND WEAKNESS (6) Hypertension Status: Chronic Qualifiers: Hypertension type: essential hypertension Qualified Code(s): I10 - Essential (primary) hypertension Plan: RESUME HOME MEDICATIONS (7) Elevated INR Status: Acute Plan: HOLD COUMADIN, ADMINISTER VITAMIN K 5MG SUBCUTANEOUSLY X 1 DOSE, CONTINUE TO MONITOR
[2018-04-08] MEDS: PROCALAMINE 3 % 1,000 ML IV SCH (18:11)
[2018-04-08] MEDS: XANAX PO PRN (18:13)
[2018-04-08] MEDS: COLACE CAP 100 MG PO SCH (21:41)
[2018-04-09] MEDS: NORMODYNE INJ 100 MG VIAL IVP PRN ×4 (00:05→04:50)
[2018-04-09] MEDS: NORMODYNE INJ 20 MG VIAL IVP PRN ×4 (01:35→21:10)
[2018-04-09 05:37] LABS: BASOPHILS % (AUTO) 0.5 % (0.2-1.0); EOSINOPHILS # (AUTO) 0.1 x10^3/uL (0.0-0.2); EOSINOPHILS % (AUTO) 1.4 % (0.9-2.9); HEMATOCRIT 33.3 % (36.0-47.0); LYMPHOCYTES # (AUTO) 1.5 X10^3/uL (1.3-2.9); LYMPHOCYTES % (AUTO) 25.7 % (21.0-51.0); MEAN CORPUSCULAR HEMOGLOBIN 23.4 pg (27.0-34.0); MEAN CORPUSCULAR HGB CONC 33.2 g/dL (33.0-35.0); MEAN CORPUSCULAR VOLUME 70.4 fL (80.0-100.0); MEAN PLATELET VOLUME 7.5 fL (7.4-11.0); MONOCYTES # (AUTO) 0.8 x10^3/uL (0.3-0.8); MONOCYTES % (AUTO) 13.8 % (0.0-13.0); NEUTROPHILS # (AUTO) 3.3 x10^3/uL (2.2-4.8); NEUTROPHILS % (AUTO) 58.6 % (42.0-75.0); PLATELET COUNT 300 X10^3/uL (150.0-450.0); RED BLOOD COUNT 4.72 X10^6/uL (3.5-5.4); RED CELL DISTRIBUTION WIDTH 14.8 % (11.6-16.5); WHITE BLOOD COUNT 5.7 X10^3/uL (3.6-10.0)
[2018-04-09 05:39] LABS: ALANINE AMINOTRANSFERASE 67 Units/L (12-78); ALBUMIN 2.2 g/dL (3.4-5.0); ALKALINE PHOSPHATASE 51 Units/L (46-116); ASPARTATE AMINO TRANSFERASE 36 Units/L (15-37); BLOOD UREA NITROGEN 19 mg/dL (7-18); CARBON DIOXIDE 28.2 mmol/L (21-32); CHLORIDE 105 mmol/L (98-107); COR CA(FOR HYPOALB) 11.4 mg/dL (8.5-10.1); CREATININE 0.86 mg/dL (0.55-1.02); SODIUM 140 mmol/L (136-145); TOTAL PROTEIN 6.3 g/dL (6.4-8.2); eGFR NON BLACK RACES > 60 (>60)
[2018-04-09] MEDS: SINEMET (PLAIN) 25/250 MG PO SCH ×3 (06:26→21:09)
[2018-04-09] MEDS: ULTRAM PO SCH ×3 (06:27→21:09)
[2018-04-09] MEDS: MEGACE ORAL SUSP 400 MG/10 ML PO SCH ×2 (06:27→17:08)
[2018-04-09 06:30] LABS: HYPOCHROMASIA 1+; PLATELET MORPHOLOGY COMMENT NORMAL (NORMAL)
[2018-04-09] MEDS: ALDACTONE TAB 25 MG PO SCH (08:03)
[2018-04-09] MEDS: ISOSORBIDE MONONITRATE ER PO SCH (08:03)
[2018-04-09] MEDS: LOPRESSOR TAB 25 MG PO SCH (08:04)
[2018-04-09] MEDS: COZAAR PO SCH (08:04)
[2018-04-09] MEDS: ROCEPHIN 1 GRAM IV PREMIX 1 G/50 ML IV.SOLN. IV SCH (08:04)
[2018-04-09] MEDS: ALBUMIN HUMAN 25%- 100 ML 100 ML IV SCH (08:05)
[2018-04-09] MEDS: NS 1000 ML 1,000 ML IV SCH ×2 (11:08→23:00)
[2018-04-09] MEDS: XANAX PO PRN (13:36)
--- NOTE | 2018-04-09 14:51 | PCM.PROG ---
Progress Note - Progress Note for Day of Date of Exam: 04/09/18 - Subjective Subjective: IS LYING IN BED WITH EYES CLOSED ON MORNING ROUNDS. SHE AWAKENS AND RESPONDS TO VERBAL STIMULI. SHE IS ORIENTED TO PERSON, BUT DOES NOT KNOWN PLACE OR TIME. FAMILY MEMBER STATES THAT SHE CONTINUES WITH A DECREASED APPETITIE. STAFF REPORTS THAT SHE CONTINUES WITH WEAKNESS AND REQUIRES MODERATE ASSISTANCE FOR ADLS. ON EXAMINATION, HEART IS REGULAR IN RATE AND RHYTHM. BILATERAL LUNGS CONTINUE WITH DIMINISHED LUNG SOUNDS THROUGHOUT. ABDOMEN IS ROUND, SOFT, AND NON-TENDER WITH NORMAL BOWEL SOUNDS NOTED IN ALL QUADRANTS. HER VITALS TODAY ARE 97.1+-79-21-97%-130/67. LABS WERE OBTAINED. ABNORMAL LAB VALUES INCLUDE THE FOLLOWING: HGB 11.0, HCT 33.3, INR 1.39, BUN 19, TOTAL PROTEIN 6.3, ALBUMIN 2.2. SHE CONTINUES ON ANTIBIOTICS FOR GROWTH OF E.COLI IN URINE. A PRECERT IS WAITING FOR INTERMEDIATE PLACEMENT AT [facility] IN [place], [place]. PATIENT HAS BEEN ACCEPTED, PENDING PRECERT. OTHERWISE, WE WILL FOLLOW UP WITH AM LABS AND CONTINUE TO MONITOR PATIENT. - Past Medical Family Social History Past Med/Fam/Surg Hx: No changes since H&P Allergies: Allergies codeine Allergy (Verified 03/29/18 14:17) penicillin G Allergy (Verified 03/29/18 14:17) - Review of Systems ROS: No change since H&P - Vital Signs and I&O's Vital Signs: Temperature 97.1 F Pulse Rate [Apical] 87 Respiratory Rate 18 Blood Pressure [Left Arm] 174/76 O2 Sat by Pulse Oximetry 97 Intake and Output: Intake & Output 04/07/18 04/08/18 04/09/18 04/10/18 11:59 11:59 11:59 11:59 Intake Total 2223 / 2223 2046 / 2046 2371 / 2371 Output Total 1250 / 1250 1150 / 1150 1100 / 1100 Balance 973 / 973 896 / 896 1271 / 1271 - Physical Exam Oriented: Unable to test Eyes: Normal Ear: Normal Nose: Normal Throat: Normal Respiratory: Normal Cardiovascular: Normal : Normal Auscultation: Bowel Sounds: Normal Palpation: Normal Tenderness: Normal, Epigastric Skin: Normal Musculoskeletal: Normal Psychiatric: Normal Mood Description: Calm Affect: Normal Speech Pattern: Clear - Laboratory and Diagnostics Result Diagrams: 04/09/18 04:53 04/09/18 04:53 Labs: 03/29/18 15:22 Urine,Catheterized Urine Culture - Final Escherichia Coli Laboratory WBC 5.7 X10^3/uL (3.6-10.0) 04/09/18 04:53 RBC 4.72 X10^6/uL (3.5-5.4) 04/09/18 04:53 Hgb 11.0 g/dL (12.0-16.0) L 04/09/18 04:53 Hct 33.3 % (36.0-47.0) L 04/09/18 04:53 MCV 70.4 fL (80.0-100.0) L 04/09/18 04:53 MCH 23.4 pg (27.0-34.0) L 04/09/18 04:53 MCHC 33.2 g/dL (33.0-35.0) 04/09/18 04:53 RDW 14.8 % (11.6-16.5) 04/09/18 04:53 Plt Count 300 X10^3/uL (150.0-450.0) 04/09/18 04:53 Plt Count Comment Adequate (ADEQUATE) 04/09/18 04:53 MPV 7.5 fL (7.4-11.0) 04/09/18 04:53 Neut % (Auto) 58.6 % (42.0-75.0) 04/09/18 04:53 Lymph % (Auto) 25.7 % (21.0-51.0) 04/09/18 04:53 [place] % (Auto) 13.8 % (0.0-13.0) H 04/09/18 04:53 Eos % (Auto) 1.4 % (0.9-2.9) 04/09/18 04:53 Baso % (Auto) 0.5 % (0.2-1.0) 04/09/18 04:53 Neut # (Auto) 3.3 x10^3/uL (2.2-4.8) 04/09/18 04:53 Lymph # (Auto) 1.5 X10^3/uL (1.3-2.9) 04/09/18 04:53 [place] # (Auto) 0.8 x10^3/uL (0.3-0.8) 04/09/18 04:53 Eos # (Auto) 0.1 x10^3/uL (0.0-0.2) 04/09/18 04:53 Baso # (Auto) 0.0 X10^3/uL (0.0-0.1) 04/09/18 04:53 Absolute Nucleated RBC 0.1 /100WBC 04/09/18 04:53 Total Counted 100 04/06/18 05:56 Neutrophils % (Manual) 95 % (39-76) H 04/06/18 05:56 Band Neutrophils % 1 % (0-10) 04/06/18 05:56 Lymphocytes % (Manual) 2 % (13-43) L 04/06/18 05:56 Monocytes % (Manual) 2 % (4-9) L 04/06/18 05:56 Plt Morphology Comment Normal (NORMAL) 04/09/18 04:53 RBC Morphology Abnormal (NORMAL) A 04/09/18 04:53 Hypochromasia 1+ A 04/09/18 04:53 Poikilocytosis Slight A 04/05/18 04:36 Anisocytosis Slight A 04/04/18 04:25 Microcytosis 1+ A 04/07/18 04:54 Target Cells Slight A 03/30/18 04:08 Ovalocytes Slight A 04/05/18 04:36 [place] Cells 1+ A 04/06/18 05:56 Crenated Cell Slight A 04/05/18 04:36 Acanthocytes (Spur) Slight 04/05/18 04:36 INR Target Range - 04/09/18 04:53 INR 1.39 (0.8-1.3) H 04/09/18 04:53 APTT 90.7 SECONDS (22.9-36.5) H 04/03/18 09:52 PTT Comment - 04/03/18 09:52 Sodium 140 mmol/L (136-145) 04/09/18 04:53 Corrected Sodium TNP 04/09/18 04:53 Potassium 4.5 mmol/L (3.5-5.1) 04/09/18 04:53 Chloride 105 mmol/L (98-107) 04/09/18 04:53 Carbon Dioxide 28.2 mmol/L (21-32) 04/09/18 04:53 BUN 19 mg/dL (7-18) H 04/09/18 04:53 Creatinine 0.86 mg/dL (0.55-1.02) 04/09/18 04:53 Est GFR (MDRD) Af Amer > 60 (>60) 04/09/18 04:53 Est GFR (MDRD) Non-Af > 60 (>60) 04/09/18 04:53 Glucose 91 mg/dL (65-99) 04/09/18 04:53 Calcium 10.0 mg/dL (8.5-10.1) 04/09/18 04:53 Corrected Calcium 11.4 mg/dL (8.5-10.1) H 04/09/18 04:53 Total Bilirubin 0.90 mg/dL (0.2-1.0) 04/09/18 04:53 AST 36 Units/L (15-37) 04/09/18 04:53 ALT 67 Units/L (12-78) 04/09/18 04:53 Alkaline Phosphatase 51 Units/L (46-116) 04/09/18 04:53 Total Protein 6.3 g/dL (6.4-8.2) L 04/09/18 04:53 Albumin 2.2 g/dL (3.4-5.0) L 04/09/18 04:53 Globulin 4.1 g/dL (2.5-4.5) 04/09/18 04:53 Albumin/Globulin Ratio 0.5 Ratio (1.1-2.1) L 04/09/18 04:53 Specimen Type Catherized urine 03/29/18 15:22 Urine Color Yellow (YELLOW) 03/29/18 15:22 Urine Appearance Cloudy (CLEAR) 03/29/18 15:22 Urine pH 6.5 (5.0 - 8.0) 03/29/18 15:22 Ur Specific [place] 1.015 (1.000-1.030) 03/29/18 15:22 Urine Protein 2+ (NEGATIVE) 03/29/18 15:22 Urine Glucose (UA) Negative (NEGATIVE) 03/29/18 15:22 Urine Ketones Negative (NEGATIVE) 03/29/18 15:22 Urine Occult Blood 4+ (NEGATIVE) 03/29/18 15:22 Urine Nitrite Negative (NEGATIVE) 03/29/18 15:22 Urine Bilirubin Negative (NEGATIVE) 03/29/18 15:22 Urine Urobilinogen 1+ (NORMAL) 03/29/18 15:22 Ur Leukocyte Esterase 1+ (NEGATIVE) 03/29/18 15:22 Urine RBC 3-5 /HPF (NONE SEEN) 03/29/18 15:22 Urine WBC 3-5 /HPF (NONE SEEN) 03/29/18 15:22 Ur Squamous Epith Cells Few /HPF (NEGATIVE) 03/29/18 15:22 Amorphous Sediment Trace /HPF (NEGATIVE) 03/29/18 15:22 Urine Bacteria 3+ /HPF (NEGATIVE) 03/29/18 15:22 Urine Yeast Few /HPF (NEGATIVE) 03/29/18 15:22 Ur Culture Indicated? Yes/culture set up 03/29/18 15:22 - Plan (1) DVT (deep venous thrombosis) Status: Acute Qualifiers: DVT location: lower extremity Affected thrombotic vein of extremity: unspecified vein of extremity Chronicity: acute Laterality: left Qualified Code(s): I82.402 - Acute embolism and thrombosis of unspecified deep veins of left lower extremity Plan: HOLD COUMADIN DUE TO ELEVATED INR, CONTINUE TO MONITOR (2) Failure to thrive Status: Acute Qualifiers: Failure to thrive age range: in adult Qualified Code(s): R62.7 - Adult failure to thrive Plan: TPN, ALBUMIN, CONTINUE TO MONITOR (3) UTI (urinary tract infection) Status: Acute Qualifiers: Urinary tract infection type: acute cystitis Hematuria presence: without hematuria Qualified Code(s): N30.00 - Acute cystitis without hematuria Plan: CIPRO 200MG IV BID, CONTINUE TO MONITOR (4) Agitation Status: Acute Plan: CONTINUE HOME MEDICATIONS, CONTINUE TO MONITOR (5) Dementia Status: Chronic Qualifiers: Dementia type: vascular dementia Dementia behavioral disturbance: without behavioral disturbance Qualified Code(s): F01.50 - Vascular dementia without behavioral disturbance Plan: OBTAIN BRAIN CT TODAY DUE TO INCREASED CONFUSION AND WEAKNESS (6) Hypertension Status: Chronic Qualifiers: Hypertension type: essential hypertension Qualified Code(s): I10 - Essential (primary) hypertension Plan: RESUME HOME MEDICATIONS (7) Elevated INR Status: Resolved Plan: CONTINUE TO MONITOR
[2018-04-09] MEDS: PROCALAMINE 3 % 1,000 ML IV SCH (18:00)
[2018-04-09] MEDS: COLACE CAP 100 MG PO SCH (21:10)
[2018-04-10] MEDS: NORMODYNE INJ 20 MG VIAL IVP PRN (04:15)
[2018-04-10] MEDS ORDERED: DULCOLAX SUPPOSITORY 10 MG RECTAL ONE (04:26)
[2018-04-10] MEDS: MILK OF MAGNESIA PO PRN (04:57)
[2018-04-10 05:25] LABS: BASOPHILS % (AUTO) 0.4 % (0.2-1.0); EOSINOPHILS # (AUTO) 0.1 x10^3/uL (0.0-0.2); EOSINOPHILS % (AUTO) 2.4 % (0.9-2.9); HEMATOCRIT 33.3 % (36.0-47.0); HEMOGLOBIN 10.8 g/dL (12.0-16.0); LYMPHOCYTES # (AUTO) 1.4 X10^3/uL (1.3-2.9); LYMPHOCYTES % (AUTO) 25.2 % (21.0-51.0); MEAN CORPUSCULAR HEMOGLOBIN 22.8 pg (27.0-34.0); MEAN CORPUSCULAR HGB CONC 32.5 g/dL (33.0-35.0); MEAN CORPUSCULAR VOLUME 70.3 fL (80.0-100.0); MEAN PLATELET VOLUME 7.4 fL (7.4-11.0); MONOCYTES # (AUTO) 0.6 x10^3/uL (0.3-0.8); MONOCYTES % (AUTO) 11.7 % (0.0-13.0); NEUTROPHILS # (AUTO) 3.4 x10^3/uL (2.2-4.8); NEUTROPHILS % (AUTO) 60.3 % (42.0-75.0); PLATELET COUNT 325 X10^3/uL (150.0-450.0); RED BLOOD COUNT 4.73 X10^6/uL (3.5-5.4); RED CELL DISTRIBUTION WIDTH 14.4 % (11.6-16.5); WHITE BLOOD COUNT 5.6 X10^3/uL (3.6-10.0)
[2018-04-10 05:35] LABS: ALANINE AMINOTRANSFERASE 18 Units/L (12-78); ALBUMIN 2.6 g/dL (3.4-5.0); ALKALINE PHOSPHATASE 49 Units/L (46-116); ASPARTATE AMINO TRANSFERASE 21 Units/L (15-37); BLOOD UREA NITROGEN 18 mg/dL (7-18); CALCIUM 10.1 mg/dL (8.5-10.1); CARBON DIOXIDE 26.4 mmol/L (21-32); CHLORIDE 105 mmol/L (98-107); COR CA(FOR HYPOALB) 11.2 mg/dL (8.5-10.1); SODIUM 138 mmol/L (136-145); TOTAL PROTEIN 6.6 g/dL (6.4-8.2); eGFR NON BLACK RACES > 60 (>60)
[2018-04-10] MEDS: SINEMET (PLAIN) 25/250 MG PO SCH ×3 (06:09→21:00)
[2018-04-10] MEDS: ULTRAM PO SCH ×3 (06:09→22:00)
[2018-04-10] MEDS: MEGACE ORAL SUSP 400 MG/10 ML PO SCH ×2 (06:10→18:14)
[2018-04-10 06:11] LABS: ANISOCYTOSIS SLIGHT; HYPOCHROMASIA 1+; PLATELET MORPHOLOGY COMMENT NORMAL (NORMAL); POIKILOCYTOSIS 1+
[2018-04-10 06:12] LABS: SCHISTOCYTES 1+
[2018-04-10] MEDS: ALBUMIN HUMAN 25%- 100 ML 100 ML IV SCH (08:00)
[2018-04-10] MEDS: LOPRESSOR TAB 25 MG PO SCH (08:22)
[2018-04-10] MEDS: COZAAR PO SCH (08:23)
[2018-04-10] MEDS: ALDACTONE TAB 25 MG PO SCH (08:23)
[2018-04-10] MEDS: ISOSORBIDE MONONITRATE ER PO SCH (08:23)
[2018-04-10] MEDS: ROCEPHIN 1 GRAM IV PREMIX 1 G/50 ML IV.SOLN. IV SCH (08:24)
[2018-04-10] MEDS: NS 1000 ML 1,000 ML IV SCH ×2 (14:30→18:13)
[2018-04-10] MEDS: COLACE CAP 100 MG PO SCH (21:00)
[2018-04-11] MEDS: NS 1000 ML 1,000 ML IV SCH ×2 (01:00→14:59)
[2018-04-11 05:51] LABS: BASOPHILS # (AUTO) 0.1 X10^3/uL (0.0-0.1); BASOPHILS % (AUTO) 0.5 % (0.2-1.0); EOSINOPHILS # (AUTO) 0.1 x10^3/uL (0.0-0.2); EOSINOPHILS % (AUTO) 1.4 % (0.9-2.9); HEMATOCRIT 33.7 % (36.0-47.0); HEMOGLOBIN 11.1 g/dL (12.0-16.0); LYMPHOCYTES # (AUTO) 1.5 X10^3/uL (1.3-2.9); LYMPHOCYTES % (AUTO) 14.8 % (21.0-51.0); MEAN CORPUSCULAR HEMOGLOBIN 23.4 pg (27.0-34.0); MEAN CORPUSCULAR VOLUME 70.9 fL (80.0-100.0); MEAN PLATELET VOLUME 7.6 fL (7.4-11.0); MONOCYTES # (AUTO) 0.7 x10^3/uL (0.3-0.8); MONOCYTES % (AUTO) 7.3 % (0.0-13.0); NEUTROPHILS # (AUTO) 7.5 x10^3/uL (2.2-4.8); PLATELET COUNT 370 X10^3/uL (150.0-450.0); RED BLOOD COUNT 4.75 X10^6/uL (3.5-5.4); RED CELL DISTRIBUTION WIDTH 14.4 % (11.6-16.5); WHITE BLOOD COUNT 9.9 X10^3/uL (3.6-10.0)
[2018-04-11 06:11] LABS: HYPOCHROMASIA SLIGHT; PLATELET MORPHOLOGY COMMENT NORMAL (NORMAL)
[2018-04-11 06:18] LABS: ALANINE AMINOTRANSFERASE 32 Units/L (12-78); ALBUMIN 2.8 g/dL (3.4-5.0); ALKALINE PHOSPHATASE 53 Units/L (46-116); ASPARTATE AMINO TRANSFERASE 16 Units/L (15-37); BLOOD UREA NITROGEN 20 mg/dL (7-18); CALCIUM 10.1 mg/dL (8.5-10.1); CARBON DIOXIDE 25.1 mmol/L (21-32); CHLORIDE 103 mmol/L (98-107); COR CA(FOR HYPOALB) 11.1 mg/dL (8.5-10.1); CREATININE 0.96 mg/dL (0.55-1.02); SODIUM 135 mmol/L (136-145); TOTAL PROTEIN 6.8 g/dL (6.4-8.2); eGFR NON BLACK RACES 59 (>60)
[2018-04-11] MEDS: SINEMET (PLAIN) 25/250 MG PO SCH ×2 (06:24→15:14)
[2018-04-11] MEDS: ULTRAM PO SCH ×2 (06:25→15:12)
[2018-04-11] MEDS: MEGACE ORAL SUSP 400 MG/10 ML PO SCH (06:26)
[2018-04-11] MEDS: MILK OF MAGNESIA PO PRN (06:26)
[2018-04-11] MEDS: NORMODYNE INJ 100 MG VIAL IVP PRN (07:40)
--- NOTE | 2018-04-11 08:05 | PCM.PROG ---
Progress Note - Progress Note for Day of Date of Exam: 04/10/18 - Subjective Subjective: IS LYING IN BED WITH EYES CLOSED ON MORNING ROUNDS. SHE AWAKENS AND RESPONDS TO VERBAL STIMULI. SHE IS ORIENTED TO PERSON, BUT DOES NOT KNOWN PLACE OR TIME. APPETITE HAS SLIGHTLY INCREASED. STAFF REPORTS THAT SHE CONTINUES WITH AGITATION AT TIMES. ON EXAMINATION, HEART IS REGULAR IN RATE AND RHYTHM. BILATERAL LUNGS CONTINUE WITH DIMINISHED LUNG SOUNDS THROUGHOUT. ABDOMEN IS ROUND, SOFT, AND NON-TENDER WITH NORMAL BOWEL SOUNDS NOTED IN ALL QUADRANTS. HER VITALS TODAY ARE 98.4-83-16-98%-191/83. LABS WERE OBTAINED. ABNORMAL LAB VALUES INCLUDE THE FOLLOWING: HGB 11.1, HCT 33.7, SODIUM 135, BUN 20, ALBUMIN 2.85. SHE CONTINUES ON ANTIBIOTICS FOR GROWTH OF E.COLI IN URINE. A PRECERT IS PENDING FOR [facility] PLACEMENT AT [facility] IN [place], [place]. OTHERWISE, WE WILL FOLLOW UP WITH AM LABS AND CONTINUE TO MONITOR PATIENT. - Past Medical Family Social History Past Med/Fam/Surg Hx: No changes since H&P Allergies: Allergies codeine Allergy (Verified 03/29/18 14:17) penicillin G Allergy (Verified 03/29/18 14:17) - Review of Systems ROS: No change since H&P - Vital Signs and I&O's Vital Signs: Temperature 99.0 F Pulse Rate [Apical] 83 Respiratory Rate 17 Blood Pressure [Left Arm] 170/74 O2 Sat by Pulse Oximetry 99 Intake and Output: Intake & Output 04/08/18 04/09/18 04/10/18 04/11/18 11:59 11:59 11:59 11:59 Intake Total 2046 / 2046 2371 / 2371 2856 / 2856 3065 / 3065 Output Total 1150 / 1150 1100 / 1100 Balance 896 / 896 1271 / 1271 2856 / 2856 3065 / 3065 - Physical Exam Oriented: Unable to test Eyes: Normal Ear: Normal Nose: Normal Throat: Normal Respiratory: Normal Cardiovascular: Normal : Normal Auscultation: Bowel Sounds: Normal Palpation: Normal Tenderness: Normal, Epigastric Skin: Normal Musculoskeletal: Normal Psychiatric: Normal Mood Description: Calm Affect: Normal Speech Pattern: Clear - Laboratory and Diagnostics Result Diagrams: 04/11/18 05:20 04/11/18 05:20 Labs: 03/29/18 15:22 Urine,Catheterized Urine Culture - Final Escherichia Coli Laboratory WBC 9.9 X10^3/uL (3.6-10.0) 04/11/18 05:20 RBC 4.75 X10^6/uL (3.5-5.4) 04/11/18 05:20 Hgb 11.1 g/dL (12.0-16.0) L 04/11/18 05:20 Hct 33.7 % (36.0-47.0) L 04/11/18 05:20 MCV 70.9 fL (80.0-100.0) L 04/11/18 05:20 MCH 23.4 pg (27.0-34.0) L 04/11/18 05:20 MCHC 33.0 g/dL (33.0-35.0) 04/11/18 05:20 RDW 14.4 % (11.6-16.5) 04/11/18 05:20 Plt Count 370 X10^3/uL (150.0-450.0) 04/11/18 05:20 Plt Count Comment Adequate (ADEQUATE) 04/11/18 05:20 MPV 7.6 fL (7.4-11.0) 04/11/18 05:20 Neut % (Auto) 76.0 % (42.0-75.0) H 04/11/18 05:20 Lymph % (Auto) 14.8 % (21.0-51.0) L 04/11/18 05:20 [place] % (Auto) 7.3 % (0.0-13.0) 04/11/18 05:20 Eos % (Auto) 1.4 % (0.9-2.9) 04/11/18 05:20 Baso % (Auto) 0.5 % (0.2-1.0) 04/11/18 05:20 Neut # (Auto) 7.5 x10^3/uL (2.2-4.8) H 04/11/18 05:20 Lymph # (Auto) 1.5 X10^3/uL (1.3-2.9) 04/11/18 05:20 [place] # (Auto) 0.7 x10^3/uL (0.3-0.8) 04/11/18 05:20 Eos # (Auto) 0.1 x10^3/uL (0.0-0.2) 04/11/18 05:20 Baso # (Auto) 0.1 X10^3/uL (0.0-0.1) 04/11/18 05:20 Absolute Nucleated RBC 0.0 /100WBC 04/11/18 05:20 Total Counted 100 04/06/18 05:56 Neutrophils % (Manual) 95 % (39-76) H 04/06/18 05:56 Band Neutrophils % 1 % (0-10) 04/06/18 05:56 Lymphocytes % (Manual) 2 % (13-43) L 04/06/18 05:56 Monocytes % (Manual) 2 % (4-9) L 04/06/18 05:56 Plt Morphology Comment Normal (NORMAL) 04/11/18 05:20 RBC Morphology Abnormal (NORMAL) A 04/11/18 05:20 Hypochromasia Slight A 04/11/18 05:20 Poikilocytosis 1+ A 04/10/18 04:51 Anisocytosis Slight A 04/10/18 04:51 Microcytosis 1+ A 04/07/18 04:54 Target Cells Slight A 03/30/18 04:08 Ovalocytes Slight A 04/05/18 04:36 [place] Cells 1+ A 04/06/18 05:56 Crenated Cell Slight A 04/05/18 04:36 Acanthocytes (Spur) Slight 04/05/18 04:36 [place] 1+ A 04/10/18 04:51 INR Target Range - 04/11/18 05:20 INR 1.35 (0.8-1.3) H 04/11/18 05:20 APTT 90.7 SECONDS (22.9-36.5) H 04/03/18 09:52 PTT Comment - 04/03/18 09:52 Sodium 135 mmol/L (136-145) L 04/11/18 05:20 Corrected Sodium TNP 04/11/18 05:20 Potassium 4.9 mmol/L (3.5-5.1) 04/11/18 05:20 Chloride 103 mmol/L (98-107) 04/11/18 05:20 Carbon Dioxide 25.1 mmol/L (21-32) 04/11/18 05:20 BUN 20 mg/dL (7-18) H 04/11/18 05:20 Creatinine 0.96 mg/dL (0.55-1.02) 04/11/18 05:20 Est GFR (MDRD) Af Amer > 60 (>60) 04/11/18 05:20 Est GFR (MDRD) Non-Af 59 (>60) 04/11/18 05:20 Glucose 96 mg/dL (65-99) 04/11/18 05:20 Calcium 10.1 mg/dL (8.5-10.1) 04/11/18 05:20 Corrected Calcium 11.1 mg/dL (8.5-10.1) H 04/11/18 05:20 Total Bilirubin 0.70 mg/dL (0.2-1.0) 04/11/18 05:20 AST 16 Units/L (15-37) 04/11/18 05:20 ALT 32 Units/L (12-78) 04/11/18 05:20 Alkaline Phosphatase 53 Units/L (46-116) 04/11/18 05:20 Total Protein 6.8 g/dL (6.4-8.2) 04/11/18 05:20 Albumin 2.8 g/dL (3.4-5.0) L 04/11/18 05:20 Globulin 4.0 g/dL (2.5-4.5) 04/11/18 05:20 Albumin/Globulin Ratio 0.7 Ratio (1.1-2.1) L 04/11/18 05:20 Specimen Type Catherized urine 03/29/18 15:22 Urine Color Yellow (YELLOW) 03/29/18 15:22 Urine Appearance Cloudy (CLEAR) 03/29/18 15:22 Urine pH 6.5 (5.0 - 8.0) 03/29/18 15:22 Ur Specific [employer] 1.015 (1.000-1.030) 03/29/18 15:22 Urine Protein 2+ (NEGATIVE) 03/29/18 15:22 Urine Glucose (UA) Negative (NEGATIVE) 03/29/18 15:22 Urine Ketones Negative (NEGATIVE) 03/29/18 15:22 Urine Occult Blood 4+ (NEGATIVE) 03/29/18 15:22 Urine Nitrite Negative (NEGATIVE) 03/29/18 15:22 Urine Bilirubin Negative (NEGATIVE) 03/29/18 15:22 Urine Urobilinogen 1+ (NORMAL) 03/29/18 15:22 Ur Leukocyte Esterase 1+ (NEGATIVE) 03/29/18 15:22 Urine RBC 3-5 /HPF (NONE SEEN) 03/29/18 15:22 Urine WBC 3-5 /HPF (NONE SEEN) 03/29/18 15:22 Ur Squamous Epith Cells Few /HPF (NEGATIVE) 03/29/18 15:22 Amorphous Sediment Trace /HPF (NEGATIVE) 03/29/18 15:22 Urine Bacteria 3+ /HPF (NEGATIVE) 03/29/18 15:22 Urine Yeast Few /HPF (NEGATIVE) 03/29/18 15:22 Ur Culture Indicated? Yes/culture set up 03/29/18 15:22 - Plan (1) DVT (deep venous thrombosis) Status: Acute Qualifiers: DVT location: lower extremity Affected thrombotic vein of extremity: unspecified vein of extremity Chronicity: acute Laterality: left Qualified Code(s): I82.402 - Acute embolism and thrombosis of unspecified deep veins of left lower extremity Plan: HOLD COUMADIN DUE TO ELEVATED INR, CONTINUE TO MONITOR (2) Failure to thrive Status: Acute Qualifiers: Failure to thrive age range: in adult Qualified Code(s): R62.7 - Adult failure to thrive Plan: TPN, ALBUMIN, CONTINUE TO MONITOR (3) UTI (urinary tract infection) Status: Acute Qualifiers: Urinary tract infection type: acute cystitis Hematuria presence: without hematuria Qualified Code(s): N30.00 - Acute cystitis without hematuria Plan: CIPRO 200MG IV BID, CONTINUE TO MONITOR (4) Agitation Status: Acute Plan: CONTINUE HOME MEDICATIONS, CONTINUE TO MONITOR (5) Dementia Status: Chronic Qualifiers: Dementia type: vascular dementia Dementia behavioral disturbance: without behavioral disturbance Qualified Code(s): F01.50 - Vascular dementia without behavioral disturbance Plan: CONTINUE TO MONITOR (6) Hypertension Status: Chronic Qualifiers: Hypertension type: essential hypertension Qualified Code(s): I10 - Essential (primary) hypertension Plan: RESUME HOME MEDICATIONS (7) Elevated INR Status: Resolved Plan: CONTINUE TO MONITOR
[2018-04-11] MEDS: ALBUMIN HUMAN 25%- 100 ML 100 ML IV SCH (09:19)
[2018-04-11] MEDS: ROCEPHIN 1 GRAM IV PREMIX 1 G/50 ML IV.SOLN. IV SCH (09:20)
[2018-04-11] MEDS: ISOSORBIDE MONONITRATE ER PO SCH (09:21)
[2018-04-11] MEDS: COZAAR PO SCH (09:21)
[2018-04-11] MEDS: ALDACTONE TAB 25 MG PO SCH (09:21)
[2018-04-11] MEDS: LOPRESSOR TAB 25 MG PO SCH (09:21)
[2018-04-11] MEDS ORDERED: XARELTO PO SCH (10:00)
--- NOTE | 2018-04-11 11:17 | RAD ---
HISTORY: Abdominal pain Study: KUB Comparison: 01/05/2016. Technique: KUB is performed with the patient in a right posterior oblique position. Patient was appar ently combative. Findings: There is evidence of stable L4-5 fusion. Surgical clips are present from cholecystectomy. Bowel gas p attern is nonspecific. No bowel obstruction is seen. Lung bases clear. No opaque stones identified. IMPRESSION: No acute abdominal abnormality is seen. Reported By:
[2018-04-11 16:25] VITALS: BP 142/71
--- NOTE | 2018-04-29 02:43 | DR.CARTERD ---
- Discharge Summary for: Discharge Summary for Date of:: 04/11/18 - Admission Date Date of Admission: 03/29/18 - Admission Diagnoses Admission Diagnosis: (1) DVT (deep venous thrombosis) (2) UTI (urinary tract infection) - Discharge Date Discharge Date: 04/11/18 - Discharge Diagnoses Discharge Diagnosis: (1) DVT (deep venous thrombosis) (2) Failure to thrive (3) UTI (urinary tract infection) (4) Agitation (5) Dementia (6) Hypertension (7) Elevated INR - Hospital Course Hospital Course: DAY ONE, MS. HEARD PRESENTED TO THE HOSPITAL A DIRECT ADMISSION AFTER BEING SEEN IN OUR OFFICE WITH REPORTS OF A BLOOD CLOT. PATIENT REPORTED SHE WAS SEEN IN THE EMERGENCY ROOM TWO DAYS PRIOR AND WAS DIAGNOSED WITH A BLOOD CLOT TO THE LEFT LEG AND A UTI. PATIENT PRESENTED TO OUR OFFICE FOR A FOLLOW UP VISIT WITH REPORTS OF SEVERE PAIN TO LEFT LEG ALLEVIATED BY NOTHING. ASSOCIATED SYMPTOMS INCLUDED FATIGUE, LACK OF BLADDER CONTROL, URGENCY, BACK PAIN, DIZZINESS, ALTERED MENTAL STATUS AND GAIT ABNORMALITY. PATIENT NOTED WITH POSITIVE HOMANS SIGN. PATIENT REPROTED CONSTIPATION WITH LAST BOWEL MOVEMENT BEING THREE DAYS PRIOR. ON AUSCULTATION, ABDOMEN NOTED WITH HYPOACTIVE BOWEL SOUNDS THROUGHOUT. PATIENT ADMITTED TO THE HOSPITAL AND GIVEN A BOLUS OF HEPARIN 4500 UNITS AND THEN STARTED ON A HEPARIN DRIP, TITRATING PER PROTOCOL. WE CONTINUED TO MONITOR. DAY TWO, MS. HEARD WAS ADMITTED FOR A LEFT LOWER EXTREMITY DVT. SHE WAS ALERT AND ORIENTED, SITTING UP ON THE SIDE OF THE BED ON MORNING ROUNDS. SHE WAS FEEDING HERSELF BREAKFAST WITH THE ASSISTANCE OF STAFF. ON EXAMINATION, HEART WAS REGULAR IN RATE AND RHYTHM. BILATERAL LUNGS WERE NOTED WITH DIMINISHED LUNG SOUNDS THROUGHOUT. ABDOMEN WAS ROUND, SOFT, AND NON-TENDER WITH NORMAL BOWEL SOUNDS NOTED IN ALL QUADRANTS. LEFT LOWER EXTREMITY WAS NOTED WITH WARMTH AND EDEMA. HER VITALS WERE 97.6-66-20-100%-174/80. LABS WERE OBTAINED. ABNORMAL LAB VALUES INCLUDED THE FOLLOWING: HGB 10.3, HCT 32.2, CHLORIDE 111, TOTAL PROTEIN 6.0, ALBUMIN 2.6. URINALYSIS THAT WAS OBTAINED ON ADMISSION REVEALED WBC 3-5, RBC 3-5, LEUKOCYTES 1+, BACTERIA 3+. A URINE CULTURE WAS PENDING. SHE CONTINUED ON A HEPARIN DRIP AND WAS ALSO RECEIVING COUMADIN 5MG AT BEDTIME. WE CONTINUE WITH TREATMENT AND STARTED CIPRO 200MG IV Q12H FOR UTI. DAY THREE, PATIENT WAS LYING IN BED WITH EYES CLOSED ON MORNING ROUNDS. SHE WAS DISORIENTED UPON AWAKENING. PATIENT HAD A HISTORY SIGNIFICANT FOR DEMENTIA. ON EXAMINATION, HEART WAS REGULAR IN RATE AND RHYTHM. BILATERAL LUNGS WERE NOTED WITH DIMINISHED LUNG SOUNDS THROUGHOUT. ABDOMEN WAS ROUND, SOFT, AND NON-TENDER WITH NORMAL BOWEL SOUNDS NOTED IN ALL QUADRANTS. LEFT LOWER EXTREMITY CONTINUED WITH WARMTH AND EDEMA. HER VITALS WERE 97.5-63-18-99%-196/85. LABS WERE OBTAINED. ABNORMAL LAB VALUES INCLUDED THE FOLLOWING: HGB 11.3, HCT 35.1, CHLORIDE 110, CREATININE 1.08, TOTAL PROTEIN 6.2, ALBUMIN 2.6, INR 1.89. URINE CULTURE REVEALED GROWTH OF E.COLI. IT WAS NOT SENSITIVE TO THE CIPRO THAT WAS STARTED. WE DISCONTINUED THE CIPRO AND STARTED ROCEPHIN 1GM IV DAILY. SHE CONTINUED ON HEPARIN DRIP AND COUMADIN 5MG AT BEDTIME. DAY FOUR, SHE WAS LYING IN BED WITH EYES CLOSED ON MORNING ROUNDS. SHE AWAKENED TO VERBAL STIMULI. SHE CONTINUED TO BE DISORIENTED. STAFF REPORTED THAT SHE HAD BEEN NOTED WITH INCREASED CONFUSION. ON EXAMINATION, HEART WAS REGULAR IN RATE AND RHYTHM. BILATERAL LUNGS WERE NOTED WITH DIMINISHED LUNG SOUNDS THROUGHOUT. ABDOMEN WAS ROUND, SOFT, AND NON-TENDER WITH NORMAL BOWEL SOUNDS NOTED IN ALL QUADRANTS. LEFT LOWER EXTREMITY CONTINUED WITH WARMTH AND EDEMA, BUT CONTINUED TO IMPROVE. HER VITALS WERE 98.7-63-16-97%-194/81. LABS WERE OBTAINED. ABNORMAL LAB VALUES INCLUDED THE FOLLOWING: HGB 11.8, GLUCOSE 107, ALT 6, ALBUMIN 2.6. SHE CONTINUED ON ANTIBIOTICS FOR GROWTH OF E.COLI IN URINE. SHE ALSO CONTINUED ON A HEPARIN DRIP AND COUMADIN 5MG AT BEDTIME. DAY FIVE, PATIENT WAS ALERT, LYING IN BED ON MORNING ROUNDS. STAFF REPORTED THAT SHE CONTINUED WITH CONFUSION AT TIMES. SHE WAS REFUSING TO EAT. ON EXAMINATION, HEART WAS REGULAR IN RATE AND RHYTHM. BILATERAL LUNGS CONTINUED WITH DIMINISHED LUNG SOUNDS THROUGHOUT. ABDOMEN WAS ROUND, SOFT, AND NON-TENDER WITH NORMAL BOWEL SOUNDS NOTED IN ALL QUADRANTS. LEFT LOWER EXTREMITY CONTINUED WITH WARMTH, NO EDEMA NOTED. HER VITALS WERE 98.7-71-12-99%-197/80. HER BLOOD PRESSURE HAD BEEN ELEVATED THROUGHOUT THE NIGHT. LABS WERE OBTAINED. ABNORMAL LAB VALUES INCLUDED THE FOLLOWING: HGB 11.8, CREATININE 1.24, GLUCOSE 102, ALT 8 , ALBUMIN 2.7. SHE CONTINUED ON ANTIBIOTICS FOR GROWTH OF E.COLI IN URINE. SHE ALSO CONTINUED ON A HEPARIN DRIP AND COUMADIN 5MG AT BEDTIME. WE DISCONTINUED HCTZ AND INCREASED LOSARTAN TO 100MG PO DAILY. DAY SIX, PATIENT WAS ALERT, LYING IN BED ON MORNING ROUNDS. FAMILY AT BEDSIDE. THEY REPORTED THAT THEY WERE UNABLE TO GET HER TO EAT. ON EXAMINATION, HEART WAS REGULAR IN RATE AND RHYTHM. BILATERAL LUNGS CONTINUED WITH DIMINISHED LUNG SOUNDS THROUGHOUT. ABDOMEN WAS ROUND, SOFT, AND NON-TENDER WITH NORMAL BOWEL SOUNDS NOTED IN ALL QUADRANTS. LEFT LOWER EXTREMITY HAD RETURNED TO BASELINE. HER VITALS WERE 98.5-74-12-99%-163/71. LABS WERE OBTAINED. ABNORMAL LAB VALUES INCLUDED THE FOLLOWING: SODIUM 135, ALT 10, ALBUMIN 2.5. INR 3.46. SHE CONTINUED ON ANTIBIOTICS FOR GROWTH OF E.COLI IN URINE. SHE ALSO CONTINUED ON A HEPARIN DRIP AND COUMADIN 5MG AT BEDTIME. WE DISCONTINUED HEPARIN DRIP AND HELD COUMADIN. WE STARTED MEGACE 40MG PO BID. DAY SEVEN, PATIENT WAS CONFUSED AND APPEARED TO BE ANXIOUS. ON EXAMINATION, HEART WAS REGULAR IN RATE AND RHYTHM. BILATERAL LUNGS CONTINUED WITH DIMINISHED LUNG SOUNDS THROUGHOUT. ABDOMEN WAS ROUND, SOFT, AND NON-TENDER WITH NORMAL BOWEL SOUNDS NOTED IN ALL QUADRANTS. LEFT LOWER EXTREMITY RETURNED TO BASELINE. SHE MOANED OUT LOUD WHEN BILATERAL LOWER EXTREMITIES WERE EXAMINED. HER VITALS WERE 99.5-81-16-98%-169/79. LABS WERE OBTAINED. ABNORMAL LAB VALUES INCLUDED THE FOLLOWING: HGB 11.8, HCT 35.8, SODIUM 134, ALT 9, ALBUMIN 2.6, GLOBULIN 4.6 , INR 4.30. SHE CONTINUED ON ANTIBIOTICS FOR GROWTH OF E.COLI IN URINE. WE HELD COUMADIN DUE TO ELEVATED INR. DAY EIGHT, TODAY, PATIENT WAS LYING IN BED WITH EYES CLOSED ON MORNING ROUNDS. SHE WAS DIFFICULT TO AROUSE. STAFF REPORTED THAT SHE CONTINUED WITH CONFUSION AND AGITATION AT TIMES. THEY ALSO REPORTED THAT PATIENT REFUSED TO EAT. ON EXAMINATION, HEART WAS REGULAR IN RATE AND RHYTHM. BILATERAL LUNGS CONTINUED WITH DIMINISHED LUNG SOUNDS THROUGHOUT. ABDOMEN WAS ROUND, SOFT, AND NON-TENDER WITH NORMAL BOWEL SOUNDS NOTED IN ALL QUADRANTS. TRACE EDEMA NOTED TO BILATERAL LOWER EXTREMITIES. HER VITALS WERE 98.9-75-14-100%-171/81. LABS WERE OBTAINED. ABNORMAL LAB VALUES INCLUDED THE FOLLOWING: HGB 10.7, HCT 32.7, BUN 22, CREATININE 1.07, ALT 9, TOTAL PROTEIN 6.2, ALBUMIN 2.0, INR 4.55. SHE CONTINUED ON ANTIBIOTICS FOR GROWTH OF E.COLI IN URINE. PHYSICAL THERAPY EVALUATED PATIENT AND RECOMMENDED THERAPY, HOWEVER, WHEN ATTEMPTING TO WORK WITH PATIENT, SHE BECAME AGITATED AND WAS UNABLE TO COOPERATE WITH THERAPY. WE CONTINUED TO HOLD COUMADIN DUE TO ELEVATED INR. WE CONTINUED WITH TREATMENT. DAY NINE, SHE CONTINUED TO BE DIFFICULT TO AROUSE. STAFF REPORTED THAT SHE CONTINUED WITH CONFUSION AND AGITATION AT TIMES. SHE ALSO CONTINUED WITH WEAKNESS. SHE BECAME VERY AGITATED WHEN STAFF OR PHYSICAL THERAPY ATTEMPTED TO GET PATIENT OUT OF BED. ON EXAMINATION, HEART WAS REGULAR IN RATE AND RHYTHM. BILATERAL LUNGS CONTINUED WITH DIMINISHED LUNG SOUNDS THROUGHOUT. ABDOMEN WAS ROUND, SOFT, AND NON-TENDER WITH NORMAL BOWEL SOUNDS NOTED IN ALL QUADRANTS. TRACE EDEMA CONTINUED TO BILATERAL LOWER EXTREMITIES. HER VITALS WERE 98.0-72-20 -97%-141/65. LABS WERE OBTAINED. ABNORMAL LAB VALUES INCLUDED THE FOLLOWING: HGB 11.5, HCT 35.1, INR 4.40, BUN 23, GLUCOSE 108, AST 75, ALBUMIN 2.1, GLOBULIN 4.9. SHE CONTINUED ON ANTIBIOTICS FOR GROWTH OF E.COLI IN URINE. WE CONTINUED TO HOLD COUMADIN DUE TO ELEVATED INR. DAY TEN, MS. HEARD WAS LYING IN BED WITH EYES CLOSED ON MORNING ROUNDS. SHE AWAKENED TO VERBAL STIMULI, BUT WAS DISORIENTED AND IMMEDIATELY BECAME AGITATED. STAFF REPORTED THAT SHE CONTINUED WITH WEAKNESS AND REFUSING TO EAT. ON EXAMINATION, HEART WAS REGULAR IN RATE AND RHYTHM. BILATERAL LUNGS CONTINUED WITH DIMINISHED LUNG SOUNDS THROUGHOUT. ABDOMEN WAS ROUND, SOFT, AND NON-TENDER WITH NORMAL BOWEL SOUNDS NOTED IN ALL QUADRANTS. TRACE EDEMA CONTINUED TO BILATERAL LOWER EXTREMITIES. HER VITALS WERE 98.7-75-12-98%-172/77. LABS WERE OBTAINED. ABNORMAL LAB VALUES INCLUDED THE FOLLOWING: HGB 10.1, HCT 30.6, INR 5.27, CHLORIDE 108, BUN 30, GLUCOSE 110, AST 136, TOTAL PROTEIN 6.1, ALBUMIN 1.7. SHE CONTINUED ON ANTIBIOTICS FOR GROWTH OF E.COLI IN URINE. WE CONTINUED TO HOLD COUMADIN DUE TO ELEVATED INR. WE ADMINISTERED VITAMIN K 5MG SUBCUTANEOUSLY X 1 DOSE AND CONTINUED TO MONITOR PATIENT. DAY , MS. HEARD IS ALERT IN BED ON MORNING ROUNDS. SHE WAS TALKING WITH HER GRANDDAUGHTER AT BEDSIDE. FAMILY MEMBER STATED THAT SHE CONTINUED WITH A DECREASED APPETITE. STAFF REPORTED THAT SHE CONTINUED WITH WEAKNESS AND REQUIRED MODERATE ASSISTANCE FOR ADLS. ON EXAMINATION, HEART WAS REGULAR IN RATE AND RHYTHM. BILATERAL LUNGS CONTINUED WITH DIMINISHED LUNG SOUNDS THROUGHOUT. ABDOMEN WAS ROUND, SOFT, AND NON-TENDER WITH NORMAL BOWEL SOUNDS NOTED IN ALL QUADRANTS. HER VITALS WERE 98.7-77-21-100%-154/59. LABS WERE OBTAINED. ABNORMAL LAB VALUES INCLUDED THE FOLLOWING: HGB 10.6, HCT 32.6, INR 2.26, CHLORIDE 108, BUN 26, AST 92, ALBUMIN 1.9. SHE CONTINUED ON ANTIBIOTICS FOR GROWTH OF E.COLI IN URINE. WE CONTINUED TO HOLD COUMADIN DUE TO ELEVATED INR. FAMILY REPORTED THAT THEY WERE NO LONGER ABLE TO CARE FOR PATIENT AT HOME AND REQUESTED HALFWAY PLACEMENT. WE WERE IN AGREEMENT WITH PLAN. CASE MANAGEMENT WAS ARRANGING PLACEMENT. DAY TWELVE, MS. HEARD IS LYING IN BED WITH EYES CLOSED ON MORNING ROUNDS. SHE AWAKENED AND RESPONDED TO VERBAL STIMULI. SHE WAS ORIENTED TO PERSON, BUT DID NOT KNOW PLACE OR TIME. FAMILY MEMBER STATED THAT SHE CONTINUED WITH A DECREASED APPETITE. STAFF REPORTED THAT SHE CONTINUED WITH WEAKNESS AND REQUIRED MODERATE ASSISTANCE FOR ADLS. ON EXAMINATION, HEART WAS REGULAR IN RATE AND RHYTHM. BILATERAL LUNGS CONTINUED WITH DIMINISHED LUNG SOUNDS THROUGHOUT. ABDOMEN WAS ROUND, SOFT, AND NON-TENDER WITH NORMAL BOWEL SOUNDS NOTED IN ALL QUADRANTS. HER VITALS WERE 97.1+-79-21-97%-130/67. LABS WERE OBTAINED. ABNORMAL LAB VALUES INCLUDED THE FOLLOWING: HGB 11.0, HCT 33.3, INR 1.39, BUN 19, TOTAL PROTEIN 6.3, ALBUMIN 2.2. SHE CONTINUED ON ANTIBIOTICS FOR GROWTH OF E.COLI IN URINE. A PRECERT WAS WAITING FOR HALFWAY PLACEMENT AT [facility] IN [place], [place]. PATIENT HAD BEEN ACCEPTED, PENDING PRECERT. DAY THIRTEEN, PATIENT AWAKENED AND RESPONDED TO VERBAL STIMULI. SHE WAS ORIENTED TO PERSON, BUT DID NOT KNOW PLACE OR TIME. APPETITE HAD SLIGHTLY IMPROVED. STAFF REPORTED THAT SHE CONTINUED WITH AGITATION AT TIMES. ON EXAMINATION, HEART WAS REGULAR IN RATE AND RHYTHM. BILATERAL LUNGS CONTINUED WITH DIMINISHED LUNG SOUNDS THROUGHOUT. ABDOMEN WAS ROUND, SOFT, AND NON-TENDER WITH NORMAL BOWEL SOUNDS NOTED IN ALL QUADRANTS. HER VITALS TODAY WERE 98.4-83- 16-98%-191/83. LABS WERE OBTAINED. ABNORMAL LAB VALUES INCLUDED THE FOLLOWING: HGB 11.1, HCT 33.7, SODIUM 135, BUN 20, ALBUMIN 2.85. SHE CONTINUED ON ANTIBIOTICS FOR GROWTH OF E.COLI IN URINE. A PRECERT WAS PENDING FOR HALFWAY PLACEMENT AT [facility] IN [place], [place]. DAY FOURTEEN, PATIENT WAS DOING BETTER. SHE WAS ORIENTED TO PERSON, PLEASANT AFFECT. LOWER EXTREMITIES WERE WITHOUT REDNESS OR EDEMA. VITAL SIGNS STABLE. LABS WNL. WE PLANNED FOR DISCHARGE. INSTRUCTIONS FOR MEDICATIONS AND FOLLOW UP WERE DISCUSSED WITH PATIENT AND FAMILY, BOTH VOICED UNDERSTANDING. PATIENT DISCHARGED TO [facility] IN [place], [place] IN STABLE CONDITION WITH EMS. Labs: Microbiology 03/29/18 15:22 Urine,Catheterized Urine Culture - Final Escherichia Coli - Discharge Medications Discharge Medications: Home Medication List alprazolam 1 tab PO BID PRN 03/29/18 [History] carbidopa-levodopa 1 tab PO TID 03/29/18 [History] ciprofloxacin HCl [Cipro] 1 tab PO BID 03/29/18 [History] diclofenac sodium 1 tab PO BID PRN 03/29/18 [History] hydrocodone-acetaminophen 1 tab PO QID PRN 03/29/18 [History] isosorbide mononitrate 1 tab PO DAILY 03/29/18 [History] losartan-hydrochlorothiazide 1 tab PO DAILY 03/29/18 [History] metoprolol tartrate 1 tab PO DAILY 03/29/18 [History] spironolactone 1 tab PO DAILY 03/29/18 [History] tramadol 1 tab PO TID 03/29/18 [History] warfarin 1 tab PO DAILY 03/29/18 [History] losartan 100 mg PO DAILY #30 tab 04/08/18 [Rx] Prescriptions: losartan Placido Jenkins - Discharge Disposition Discharge Disposition: PATIENT IS TO FOLLOW UP WITH PHYSICIAN OF CHOICE AT [facility].
== END 2018-04-11 16:15 | DRG 300 ==
LOC: ICU 13:35
PROVIDERS: ADMIT Internal Medicine; ATTEND Internal Medicine
DX: R41.82 Altered mental status, unspecified; I10 Essential (primary) hypertension; R62.7 Adult failure to thrive; B96.20 Unspecified Escherichia coli [E. coli] as the cause of diseases classified elsewhere; F01.50 Vascular dementia, unspecified severity, without behavioral disturbance, psychotic disturbance, mood disturbance, and anxiety; R26.81 Unsteadiness on feet; N30.00 Acute cystitis without hematuria; R79.1 Abnormal coagulation profile; I82.432 Acute embolism and thrombosis of left popliteal vein
CPT/HCPCS: 36415; 70450; 74000; 74018; 80053; 81001; 85025; 85610; 85730; 87086; 87088; 87186; 92526; 92610; 93005; 93971; 97110; 97112; 97163; 97167; 97530; 97535; A4216; A4222; B5200; P9047; J0696; J0744; J1630; J1644; J2405; J2550; J3430; J3490; J7030